=== PATIENT | female | born 1965 | race Caucasian/White ===

== ENCOUNTER 2018-06-26 20:27 | Emergency (ER) | payer BC, OTHER ==
[~2018-06-26] VITALS: Ht 175.3 cm; Wt 102.1 kg
[2018-06-26] MEDS ORDERED: KEPPRA500 MG PO (21:13)
[2018-06-26] MEDS ORDERED: DILANTIN100 MG PO ×2 (21:13→21:14)
[2018-06-26] MEDS ORDERED: NAPROSYN500 MG PO (21:14)
[2018-06-26] MEDS ORDERED: TOPAMAX100 MG PO (21:14)
[2018-06-26] MEDS ORDERED: VERAPAMIL HCL40 MG PO (21:14)
[2018-06-26] MEDS ORDERED: PROZAC20 MG PO (21:15)
[2018-06-26] MEDS ORDERED: NORCO 5-325 TA1 EACH PO (22:02)
== END 2018-06-26 22:26 | disposition home or self-care (01) ==
LOC: ED 20:27
PROC: 2W3CX1Z Immobilization of Right Lower Arm using Splint (ICD-10-PCS; principal; 2018-06-26)
DX: S62.111A Displaced fracture of triquetrum [cuneiform] bone, right wrist, initial encounter for closed fracture (principal); G43.909 Migraine, unspecified, not intractable, without status migrainosus; F41.9 Anxiety disorder, unspecified; F32.9 Major depressive disorder, single episode, unspecified; Z87.891 Personal history of nicotine dependence; Z90.710 Acquired absence of both cervix and uterus; Z88.8 Allergy status to other drugs, medicaments and biological substances; Z79.899 Other long term (current) drug therapy; W18.31XA Fall on same level due to stepping on an object, initial encounter
CPT/HCPCS: 29125; 73090; 73110; 99283-25

== ENCOUNTER 2018-10-05 10:28 | Emergency (ER) | payer MEDICARE ==
[~2018-10-05] VITALS: Ht 175.3 cm; Wt 102.1 kg
[~2018-10-05 10:28] MED LIST: DILANTIN100 MG PO; KEPPRA500 MG PO; NAPROSYN500 MG PO; NORCO 5-325 TA1 EACH PO; PROZAC20 MG PO; TOPAMAX100 MG PO; VERAPAMIL HCL40 MG PO
--- NOTE | 2018-10-06 06:45 | EKG ---
[facility] [address] [facility] [place] [address] Signed Normal sinus rhythm Normal ECG No previous ECGs available Confirmed by LEEANNE DANGELO MD ([id number]) on 10/06/2018 6:45:51 AM Electronically Signed By: LEEANNE DANGELO MD 10/06/18 0645 PATIENT NAME: TRANG DIAZ Electrocardiogram DATE OF : 63 PHYSICIAN: LEEANNE DANGELO MD REPORT #: [id number] REPORT IS CONFIDENTIAL AND NOT TO BE RELEASED WITHOUT AUTHORIZATION
== END 2018-10-05 14:37 | disposition home or self-care (01) ==
LOC: ED 10:28
DX: G40.909 Epilepsy, unspecified, not intractable, without status epilepticus (principal); R20.2 Paresthesia of skin; F41.9 Anxiety disorder, unspecified; F32.9 Major depressive disorder, single episode, unspecified; Z87.891 Personal history of nicotine dependence; Z88.8 Allergy status to other drugs, medicaments and biological substances; Z79.899 Other long term (current) drug therapy
CPT/HCPCS: 51701; 70450; 71045; 80053; 80156; 80185; 81001; 82542; 84484; 85025; 93005; 93010; 93880; 99284-25; G0480; J2270; J7030

== ENCOUNTER 2018-10-27 14:04 | Emergency (ER) | payer MEDICARE ==
[~2018-10-27] VITALS: Ht 175.3 cm; Wt 102.1 kg
--- OUTSIDE RECORDS SUMMARY | ~2018-10-27 | XMS | Encounter Summary ---
Demographics + + + | Address | [address] | | | [place] [address] | + + + | Home Phone | | + + + | Preferred Language | Unknown | + + + | Marital Status | | + + + | Methodist Affiliation | Unknown | + + + | Race | Unknown | + + + | Ethnic Group | Unknown | + + + Author + + + | Author | [facility] [email or web address] [facility] | + + + | Organization | [facility] [email or web address] [facility] | + + + | Address | Unknown | + + + | Phone | Unavailable | + + + Care Team Providers + +------+ + | Care Civil Litigation Attorney Name | Role | Phone | + +------+ + | Nicolasa Leavitt PA-C | PCP | | + +------+ + Encounter Details +--------+ + + + + | Date | Type | Department | Care Team | Description | +--------+ + + + + | 10/10/ | Documentati | [facility] | Jennifer Mcnair, | | | 2019 | on Only | [facility] | [address] | | | | | [address] | [address] [place] | | | | | [place], [place] | [address] | | | | | [address] | | | | | | [phone] | | | +--------+ + + + + Social History + +-------+ +--------+------+ | Tobacco Use | Types | Packs/Day | Years | Date | | | | | Used | | + +-------+ +--------+------+ | Never Assessed | | | | | + +-------+ +--------+------+ + + + | Sex Assigned at | Date Recorded | | | | + + + | Not on file | | + + + as of this encounter Progress Notes Emely Nae N - 10/10/2018 10:09 AM PDTNeurology referralin this encounter Plan of Treatment +--------+---------+ + + + | Date | Type | Specialty | Care Team | Description | +--------+---------+ + + + | 01/19/ | Office | Neurology | Jennifer Mcnair, | | | 2018 | Visit | | MD [address] | | | | | | [place] | | | | | | [id number] | | | | | | | | +--------+---------+ + + + as of this encounter Visit Diagnoses Not on filein this encounter"
--- OUTSIDE RECORDS SUMMARY | ~2018-10-27 | XMS | Encounter Summary ---
Demographics + + + | Address | [address] | | | [place] [address] | + + + | Home Phone | | + + + | Preferred Language | Unknown | + + + | Marital Status | | + + + | Jehovah'S Witness Affiliation | Unknown | + + + | Race | Unknown | + + + | Ethnic Group | Unknown | + + + Author + + + | Author | [facility] [employer] [facility] | + + + | Organization | [facility] [employer] [facility] | + + + | Address | Unknown | + + + | Phone | Unavailable | + + + Care Team Providers + +------+ + | Care Package Line Operator Name | Role | Phone | [...] | [address] | [address] [place] [place] | | | | | [place], [place] | [address] | | | | | [address] | | | | | | [phone] | | | +--------+ + + + [...] [place] | | | | | | [phone] | | | | | | | | +--------+---------+ + + + as of this encounter Visit Diagnoses Not on filein this encounter"
--- OUTSIDE RECORDS SUMMARY | ~2018-10-27 | XMS | Clinical Summary ---
Demographics + + + | Address | [address] | | | [place] [address] | + + + | Home Phone | | + + + | Preferred Language | Unknown | + + + | Marital Status | | + + + | Yazdanism Affiliation | Unknown | + + + | Race | Unknown | + + + | Ethnic Group | Unknown | + + + Author + + + | Author | [facility] | + + + | Organization | [facility] [employer] [facility] | + + + | Address | Unknown | + + + | Phone | Unavailable | + + + Care Team Providers + +------+ + | Care Dynamic Etching Processor Name | Role | Phone | + +------+ + | Nicolasa Leavitt PA-C | PP | | + +------+ + Allergies Not on File Current Medications Not on file Active Problems Not on file Encounters +--------+ + + + + | Date | Type | Specialty | Care Team | Description | +--------+ + + + + | 10/10/ | Documentati | | Jennifer Mcnair, | | | 2018 | on Only | | MD | | +--------+ + + + + from Last 3 Months Social History + +-------+ +--------+------+ | Tobacco [...] | + + + Plan of Treatment +--------+---------+ + + + | Date | Type | Specialty | Care Team | Description | +--------+---------+ + + + | 01/19/ | Office | | Jennifer Mcnair, | | | 2018 | Visit | | MD [address] | | | | | | [place] | | | | | | [phone] | | | | | | | [...] | Screening | 4 | | | | (Mammogram) | | | | + + + + + | Colon Cancer | | | | | Screening | 4 | | | | (Colonoscopy) | | | | + + + + + | Vaccine: Zoster (1 | | | | | of 2) | 4 | | | + + + + + | Vaccine: Influenza | | | | | (Season Ended) | 9 | | | + + [...] +------+-------+ + | MEDICARE | MEDICA | [id number] | | | [address] | | | RE | | | | [place] [id number] | | | IP-OP | | | [...] Self | [birth year] Home: | [address] | | | al/Fam | | 1965 | [phone] [place] | | | [place] | | | [phone] | [phone] | + +--------+ +--------+ + +"
--- OUTSIDE RECORDS SUMMARY | ~2018-10-27 | XMS | Clinical Summary ---
Demographics + + + | Address | [address] | | | [place] [address] | + + + | Home Phone | | + + + | Preferred Language | Unknown | + + + | Marital Status | | + + + | Episcopal Affiliation | Unknown | + + + | Race | Unknown | + + + | Ethnic Group | Unknown | + + + Author + + + | Author | [facility] | + + + | Organization | [facility] [employer] [facility] | + + + | Address | Unknown | + + + | Phone | Unavailable | + + + Care Team Providers + +------+ + | Care Speech Therapy Director Name | Role | Phone | + [...] [place] | | | | | | [phone] | | | | | | | [...] +------+-------+ + | MEDICARE | MEDICA | [id number] | | | [address] | | | RE | | | | [place] [phone] | | | IP-OP | | | [...] | | | [place] | | | [phone] | [phone] | + +--------+ +--------+ + +"
--- OUTSIDE RECORDS SUMMARY | 2018-10-27 14:06 | XMS ---
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 Events No recent Security Events currently on file CRITERIA MET - [facility] - 2 Visits in 30 Days CARE PROVIDERS MELI JOHNSON Family Medicine Current PHONE: Unknown Alize TORRES Nurse Practitioner: Family Current PHONE: Unknown ROSAURA RAMOS Family [facility] Current PHONE: [phone] Laura Mojica Mental Health Provider 11/27/2017-05/26/2018 PHONE: Unknown ROSAURA RAMOS Primary Care Current PHONE: Unknown BLESSING Brooks Primary Care Current PHONE: Unknown BO DOLL Primary Care Current PHONE: Unknown MELI JOHNSON Primary Care Current PHONE: Unknown Meli Johnson Primary Care Current PHONE: Unknown MELI JOHNSON Primary Care Current PHONE: Unknown RONNIE TINEO Primary Care 07/22/2017-[facility] PHONE: [phone] LYNDON PATTERSON Primary Care [facility] PHONE: Unknown LYNDON PARK Primary [facility] PHONE: Unknown Vinh has no Care Guidelines for this patient. E.Tl VISIT COUNT (12 MO.) 1 [place] [address] [place] [address] KISHORE Torres TOTAL 5 NOTE: Visits indicate total known visits. ED/UCC VISIT TRACKING (12 MO.) 10/27/2018 14:05 KISHORE Quintana [place] TYPE: Emergency COMPLAINT: - MILD SOB 10/05/2018 10:29 KISHORE Quintana [place] TYPE: Emergency COMPLAINT: - SEIZURE,DIZZINESS, RIGHT SIDED WEAKNESS DIAGNOSES: - Major depressive disorder, single episode, unspecified - Personal history of nicotine dependence - Epilepsy, unspecified, not intractable, without status epilepticus - Other shelter (current) drug therapy - Anxiety disorder, unspecified - Allergy status to other drugs, medicaments and biological substances status - Paresthesia of skin 06/26/2018 20:28 KISHORE Quintana [place] TYPE: Emergency COMPLAINT: - R WRIST/HAND PAIN,INJURY DIAGNOSES: - Pain in right hand - Anxiety disorder, unspecified - Major depressive disorder, single episode, unspecified - Displaced fracture of triquetrum [cuneiform] bone, right wrist, initial encounter for closed fracture - Acquired absence of both cervix and uterus - Fall on same level due to stepping on an object, initial encounter - Migraine, unspecified, not intractable, without status migrainosus - Allergy status to other drugs, medicaments and biological substances status - Personal history of nicotine dependence - 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
[2018-10-27] MEDS ORDERED: ALLEGRA ALLERG180 MG PO (14:20)
--- NOTE | 2018-10-28 13:39 | EKG ---
[facility] [address] [facility] [place] [address] Signed Normal sinus rhythm Normal ECG When compared with ECG of 05-OCT-2018 10:57, No significant change was found Confirmed by QUINTON SCANLON MD ([id number]) on 10/28/2018 1:39:20 PM Electronically Signed By: QUINTON SCANLON MD 10/28/18 1339 PATIENT NAME: EMILYTRANG R Electrocardiogram DATE OF : 63 PHYSICIAN: QUINTON SCANLON MD REPORT #: [id number] REPORT IS CONFIDENTIAL AND NOT TO BE RELEASED WITHOUT AUTHORIZATION
== END 2018-10-27 15:47 | disposition home or self-care (01) ==
LOC: ED 14:04
DX: J30.2 Other seasonal allergic rhinitis (principal); F41.9 Anxiety disorder, unspecified; F32.9 Major depressive disorder, single episode, unspecified; Z87.891 Personal history of nicotine dependence; Z90.710 Acquired absence of both cervix and uterus; Z88.8 Allergy status to other drugs, medicaments and biological substances; Z79.899 Other long term (current) drug therapy
CPT/HCPCS: 36415; 71045; 80053; 84484; 85025; 93005; 93010; 99284-25

== ENCOUNTER 2019-03-02 17:29 | Emergency (ER) | payer MEDICARE ==
[~2019-03-02] VITALS: Ht 175.3 cm; Wt 104.3 kg
[~2019-03-02 17:29] MED LIST changes: +ALLEGRA ALLERG180 MG PO; +PHENYTEK300 MG PO; -PROZAC20 MG PO; +PROZAC40 MG PO; +ZYRTEC10 MG PO
--- OUTSIDE RECORDS SUMMARY | 2019-03-02 17:32 | XMS ---
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 - 2 Visits in 30 Days CARE PROVIDERS MELI JOHNSON Family Medicine Current PHONE: Unknown ROSAURA RAMOS [facility] Current PHONE: [phone] REJI CALDERÓN 10/28/2018-Current PHONE: [phone] Laura Mojica Mental Health Provider 11/27/2017-05/26/2018 PHONE: Unknown ROSAURA RAMOS Primary Care Current PHONE: [phone] Meli Johnson Primary Care Current PHONE: Unknown HIEU BANUELOS Primary Care Current PHONE: Unknown BO DOLL Primary Care Current PHONE: Unknown MELI JOHNSON Primary Care Current PHONE: Unknown RONNIE TINEO Primary Care 07/22/2017-[facility] [place] PHONE: [phone] LYNDON PARK Primary [facility] PHONE: Unknown Vinh has no Care Guidelines for this patient. [place] VISIT COUNT (12 MO.) 5 KISHORE Torres TOTAL 5 NOTE: Visits indicate total known visits. 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 10/27/2018 14:05 KISHORE [place] TYPE: Emergency COMPLAINT: - MILD SOB DIAGNOSES: - Acquired absence of both cervix and uterus - Anxiety disorder, unspecified - Allergy status to other drugs, medicaments and biological substances status - Personal history of nicotine dependence - Other seasonal allergic rhinitis - Major depressive disorder, single episode, unspecified - 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 - Cough 10/05/2018 10:29 KISHORE [place]ana [place] TYPE: Emergency COMPLAINT: - SEIZURE,DIZZINESS, RIGHT SIDED WEAKNESS DIAGNOSES: - Major depressive disorder, single episode, unspecified - Personal history of nicotine dependence - Epilepsy, unspecified, not intractable, without status epilepticus - Gómez's palsy - 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
[2019-03-02] MEDS ORDERED: MAXALT MLT5 MG PO (18:52)
== END 2019-03-02 21:30 | disposition home or self-care (01) ==
LOC: ED 17:29
DX: M54.32 Sciatica, left side (principal); F41.9 Anxiety disorder, unspecified; F32.9 Major depressive disorder, single episode, unspecified; Z79.899 Other long term (current) drug therapy; Z87.891 Personal history of nicotine dependence; Z88.3 Allergy status to other anti-infective agents
CPT/HCPCS: 99283

== ENCOUNTER 2019-05-11 06:41 | Emergency (ER) | payer MEDICARE ==
[~2019-05-11] VITALS: Ht 175.3 cm; Wt 99.8 kg
--- OUTSIDE RECORDS SUMMARY | ~2019-05-11 | XMS | Clinical Summary ---
Demographics + + + | Address | [address] | | | [place] [address] | + + + | Home Phone | | + + + | Preferred Language | Unknown | + + + | Marital Status | | + + + | Synagogue Affiliation | 1037 | + + + | Race | Unknown | + + + | Ethnic Group | Unknown | + + + Author + + + | Author | [facility] | | | and [place] | + + + | Organization | [facility] | | | and [place] | + + + | Address | Unknown | + + + | Phone | Unavailable | + + + Support + + + + + | Name | Relationship | Address | Phone | + + + + + | Jenn Land | ECON | [address] | | | | | [place], [place] | | | | | [address] | | + + + + + Care Team Providers + +------+ + | Care Finished Goods Planner Name | Role | Phone | + +------+ + | Nicolasa Leavitt | PCP | | + +------+ + Allergies + + + + + + | Active Allergy | Reactions | Severity | Noted | Comments | | | | | Date | | + + + + + + | Bee Pollen | Anaphylaxis | High | 09/12/19 | | | | | | 16 | | + + + + + + | Bupropion | Other (See Comments) | High | 05/10/20 | Seizures | | | | | 17 | | + + + + + + | Metronidazole | Anaphylaxis, | High | 09/12/19 | Stops breathing | | | Shortness Of Breath, | | 16 | | | | Swelling, Other | | | | | | (See Comments) | | | | + + + + + + | Propoxyphene | Nausea And Vomiting, | High | 09/12/19 | | | | Nausea Only | | 16 | | + + + + + + | Propoxyphene | Nausea And Vomiting, | Low | 03/14/20 | "makes me feel | | N-Acetaminophen | Other (See | | 17 | weird" | | | Comments) | | | | + + + + + + | Venlafaxine | Unknown | Low | 05/10/20 | | | | | | 17 | | + + + + + + Medications + + + +---------+------+------+-------+ | Medication | Sig | Dispensed | Refills | Star | End | Statu | | | | | | t | Date | s | | | | | | Date | | | + + + +---------+------+------+-------+ | verapamil (CALAN) | Take 40 mg by mouth | | 0 | | | Activ | | 40 MG tablet | Daily. | | | | | e | + + + +---------+------+------+-------+ | phenytoin | Take 100 mg by mouth | | 0 | | | Activ | | (DILANTIN) 100 mg ER | nightly. | | | | | e | | capsule | | | | | | | + + + +---------+------+------+-------+ | phenytoin | Take 300 mg by mouth | | 0 | | | Activ | | (DILANTIN) 300 MG ER | nightly. | | | | | e | | capsule | | | | | | | + + + +---------+------+------+-------+ | topiramate | Take 100 mg by mouth | | 0 | | | Activ | | (TOPAMAX) 100 mg | 2 times daily. | | | | | e | | tablet | | | | | | | + + + +---------+------+------+-------+ | levETIRAcetam | Take 500 mg by mouth | | 0 | | | Activ | | (KEPPRA) 500 mg | 2 times daily. | | | | | e | | tablet | | | | | | | + + + +---------+------+------+-------+ | raNITIdine HCl | Take by mouth 2 | | 0 | | | Activ | | (ZANTAC PO) | times daily. | | | | | e | + + + +---------+------+------+-------+ | FLUoxetine | Take 40 mg by mouth | | 0 | | | Activ | | (PROZAC) 40 MG | Daily. | | | | | e | | capsule | | | | | | | + + + +---------+------+------+-------+ | omeprazole | Take 10 mg by mouth | | 0 | | | Activ | | (PRILOSEC) 10 mg | every morning | | | | | e | | capsule | (before breakfast). | | | | | | + + + +---------+------+------+-------+ | cetirizine | Take 10 mg by mouth | | 0 | | | Activ | | (ZYRTEC) 10 mg | Daily. | | | | | e | | tablet | | | | | | | + + + +---------+------+------+-------+ | Fexofenadine HCl | Take by mouth | | 0 | | | Activ | | (PAPO PO) | Daily. | | | | | e | + + + +---------+------+------+-------+ | fluticasone | 1 spray by Nasal | | 0 | | | Activ | | (FLONASE) 50 | route Daily. | | | | | e | | mcg/nasal spray | | | | | | | + + + +---------+------+------+-------+ | rizatriptan | Take 5 mg by mouth | | 0 | | 11/0 | Disco | | (MAXALT) 5 MG tablet | as needed for | | | | 8/20 | ntinu | | | Migraine. May repeat | | | | 19 | ed | | | in 2 hours if | | | | | (Ther | | | needed | | | | | apy | | | | | | | | compl | | | | | | | | eted) | + + + +---------+------+------+-------+ Active Problems + + + | Problem | Noted Date | + + + | GERD (gastroesophageal reflux disease) | 05/01/2019 | + + + | Lumbar herniated disc | 05/01/2019 | + + + | Class 2 obesity due to excess calories with body mass index (BMI) | 05/01/2019 | | of 36.0 to 36.9 in adult | | + + + | Insomnia due to medical condition | 03/28/2018 | + + + | Encounter for medication review and counseling | 02/21/2018 | + + + + + | Overview: > 2 chronic conditions> 9 medicationsMultiple | | providersBasic health literacy levelMedication review every 12 | | monthsLast Assessment & Plan: Medications reviewed with patient | | and med list updated.Adherence: No concernsSide effects noted : | | None notedDrug interactions: None concerningReviewed purpose and | | appropriate use of all medicationsDeprescribing opportunities: | | PPI but patient not quite ready Explained the reason for dose | | decrease in verapamil.Unlikely to be responsible for described | | side effects. | |Adherence: No concerns | |Side effects noted : None noted | |Drug interactions: None concerning | | | |Reviewed purpose and appropriate use of all medications | |Deprescribing opportunities: PPI but patient not quite ready | |Explained the reason for dose decrease in verapamil.Unlikely to be responsible for describe d side effects. | + + + + + | Generalized anxiety disorder | 02/14/2018 | + + + | Sprain of left thumb, sequela | 02/14/2018 | + + + | Left hand pain | 02/10/2018 | + + + + + | Overview: Last Assessment & Plan: Given mechanism of injury | | suspect sprain.Attempted to give full wrist and thumb spica | | brace. We do not have the correct type in clinic. Gave a thumb | | wrist gutter brace and will have her terutn to clinic when our | | shipment of thumb spica's come inXray of hand was | | negative.REcommended supportive care, ice and bracing and follow | | up next week when swelling improving to determine if ligamentous | | injury or sending to hand specialist is indicated. | + + + + + | Hx of migraine headaches | 12/12/2017 | + + + | Health education/counseling | 11/07/2017 | + + + + + | Overview: 10/31/2017 Assessment. 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 | + + + + + | Family history of Alzheimer's disease | 11/06/2017 | + + + | High plasma total homocysteine | 11/06/2017 | + + + | History of chronic bronchitis | 11/06/2017 | + + + | Memory change | 11/06/2017 | + + + | Chronic seasonal allergic rhinitis | 10/08/2017 | + + + | Migraine without status migrainosus, not intractable | 10/08/2017 | + + + | Non-intractable vomiting with nausea | 05/10/2017 | + + + | Chronic bilateral low back pain without sciatica | 02/04/2017 | + + + | Chronic constipation | 02/04/2017 | + + + | Depression | 02/04/2017 | + + + | Hot flash, menopausal | 02/04/2017 | + + + | Seizures | 07/06/2016 | + + + + + | Overview: Seeing Dr. Rodriguez at [facility] On | | Keppra, Dilantin, and Topiramate.02/14/18: Seizure | | Disorder:Previously followed by Dr. Nam, neurologist at [facility] | | [facility] and on levetiracetam at 500 mg twice daily; impaired | | nighttime sleep with stress and anxiety, and may have experienced | | breakthrough seizuresBrain MRI without hippocampal atrophy or | | mesial temporal sclerosisTherapeutic serum levetiracetam level | | but Keppra dose will be increased to 500 mg in the morning and | | 1000 mg at bedtime given possible breakthrough seizures | + + Encounters +--------+ + + + + | Date | Type | Specialty | Care Team | Description | +--------+ + + + + | 05/01/ | Office | Neurosurgery | Michael Zamora | Lumbar herniated | | 2019 | Visit | | MD Promise | disc (Primary Dx); | | | | | | Class 2 obesity due | | | | | | to excess calories | | | | | | with body mass index | | | | | | (BMI) of 36.0 to | | | | | | 36.9 in adult, | | | | | | unspecified whether | | | | | | serious comorbidity | | | | | | present | +--------+ + + + + | 04/30/ | Abstract | Neurosurgery | Kvng, | | | 2018 | | | MD Jennifer | | +--------+ + + + + | 04/30/ | Documentati | Neurosurgery | Michael Zamora | Pain Management | | 2019 | on | | MD Promise | (Initial Encounter) | +--------+ + + + + | 04/01/ | Imaging | Radiology | Provider, | | | 2018 | Exam | | MD Jennifer | | +--------+ + + + + | 04/01/ | Imaging | Radiology | Provider, | | | 2018 | Exam | | MD Jennifer | | +--------+ + + + + | 03/31/ | Telephone | Neurology | Jennifer Mcnair, | Follow-up | | 2018 | | | MD | | +--------+ + + + + | 03/23/ | Office | Neurology | Jennifer Mcnair, | Nonspecific | | 2018 | Visit | | | trini adams | | | | | | (Primary Dx); Robbi | | | | | | of tremashlie; | | | | | | Driving safety issue | +--------+ + + + + | 03/18/ | Telephone | Neurology | Jennifer Mcnair, | Other (Concerns) | | 2018 | | | MD | | +--------+ + + + + | 03/18/ | Telephone | Neurology | Jennifer Mcnair, | Paperwork (January | 2018 | | | MD | Chart Notes) | +--------+ + + + + | 02/18/ | Office | Neurology | Jennifer Mcnair, | Spells of sheri | 2018 | Visit | | | (Primary Dx); | | | | | | Driving safety issue | +--------+ + + + + | 02/18/ | Telephone | Neurology | Jaydon Maxwell, | Other (records | 2018 | | | Twila Johnson | request ) | | | | | [place] | | +--------+ + + + + from Last 3 Months Family History + + +------+ + | Medical History | Relation | Name | Comments | + + +------+ + | Colon cancer | Brother | | | + + +------+ + | Diabetes | Brother | | | + + +------+ + | Esophageal cancer | Brother | | | + + +------+ + | Heart disease | Brother | | | + + +------+ + | Hypertension | Brother | | | + + +------+ + | Stomach cancer | Brother | | | + + +------+ + | Alcohol abuse | Brother | | | + + +------+ + | Depression | Brother | | | + + +------+ + | Drug abuse | Brother | | | + + +------+ + | Liver disease | Brother | | | + + +------+ + | Alcohol abuse | Brother | | | + + +------+ + | Depression | Brother | | | + + +------+ + | Drug abuse | Brother | | | + + +------+ + | Osteoporosis | Brother | | | + + +------+ + | No known problems | Brother | | | + + +------+ + | Diabetes | Brother | | | + + +------+ + | Alcohol abuse | Daughter | | | + + +------+ + | Drug abuse | Daughter | | | + + +------+ + | Migraines | Daughter | | | + + +------+ + | Mental illness | Daughter | | | + + +------+ + | Migraines | Daughter | | | + + +------+ + | Thyroid disease | Daughter | | | + + +------+ + | Migraines | Daughter | | | + + +------+ + | Migraines | Daughter | | | + + +------+ + | Depression | Father | | | + + +------+ + | Diabetes | Father | | | + + +------+ + | Emphysema | Father | | | + + +------+ + | GERD | Father | | | + + +------+ + | Heart attack | Father | | Multiple | + + +------+ + | Heart disease | Father | | | + + +------+ + | High cholesterol | Father | | | + + +------+ + | Hypertension | Father | | | + + +------+ + | Mental illness | Father | | | + + +------+ + | Migraines | Father | | | + + +------+ + | Neuropathy | Father | | | + + +------+ + | Obesity | Father | | | + + +------+ + | Rheum arthritis | Father | | | + + +------+ + | No known problems | Maternal | | | | | Grandfath | | | | | er | | | + + +------+ + | No known problems | Maternal | | | | | Grandmoth | | | | | er | | | + + +------+ + | Alzheimer's disease | Mother | | | + + +------+ + | COPD | Mother | | | + + +------+ + | Dementia | Mother | | | + + +------+ + | Depression | Mother | | | + + +------+ + | Heart attack | Mother | | x2 | + + +------+ + | Heart disease | Mother | | | + + +------+ + | Hypertension | Mother | | | + + +------+ + | Migraines | Mother | | | + + +------+ + | Neuropathy | Mother | | | + + +------+ + | Rheum arthritis | Mother | | | + + +------+ + | Stroke | Mother | | x2 | + + +------+ + | No known problems | Paternal | | | | | Grandfath | | | | | er | | | + + +------+ + | No known problems | Paternal | | | | | Grandmoth | | | | | er | | | + + +------+ + | No known problems | Son | | | + + +------+ + | No known problems | Son | | | + + +------+ + | Aneurysm | Neg Hx | | | + + +------+ + | Ataxia | Neg Hx | | | + + +------+ + | Chorea | Neg Hx | | | + + +------+ + | Essential tremors | Neg Hx | | | + + +------+ + | Familial tremors | Neg Hx | | | + + +------+ + | Mental retardation | Neg Hx | | | + + +------+ + | Multiple sclerosis | Neg Hx | | | + + +------+ + | Neurofibromatosis | Neg Hx | | | + + +------+ + | Parkinsonism | Neg Hx | | | + + +------+ + | Seizures | Neg Hx | | | + + +------+ + + +------+ + + | Relation | Name | Status | Comments | + +------+ + + | Brother | | Alive | | + +------+ + + | Brother | | Alive | | + +------+ + + | Brother | | Alive | | + +------+ + + | Brother | | Alive | | + +------+ + + | Brother | | Alive | | + +------+ + + | Daughter | | Alive | | + +------+ + + | Daughter | | Alive | | + +------+ + + | Daughter | | Alive | | + +------+ + + | Daughter | | Alive | | + +------+ + + | Father | | | | + +------+ + + | Maternal Grandfather | | | | + +------+ + + | Maternal Grandmother | | | | + +------+ + + | Mother | | Alive | | + +------+ + + | Paternal Grandfather | | | | + +------+ + + | Paternal Grandmother | | | | + +------+ + + | Son | | Alive | | + +------+ + + | Son | | Alive | | + +------+ + + Social History + + + +--------+ + | Tobacco Use | Types | Packs/Day | Years | Date | | | | | Used | | + + + +--------+ + | Former Smoker | Cigarettes | 2.5 | 40 | 197710/09/2017 | + + + +--------+ + + +---+---+---+ | Smokeless Tobacco: | | | | | Never Used | | | | + +---+---+---+ + + +---------+ + | Alcohol Use | Drinks/Week | oz/Week | Comments | + + +---------+ + | Yes | | | | + + +---------+ + + + + | Sex Assigned at | Date Recorded | | | | + + + | Not on file | | + + + + + + + | Job Start Date | Occupation | Industry | + + + + | Not on file | Not on file | Not on file | + + + + + + + + | Travel History | Travel Start | Travel End | + + + + + + | No recent travel history available. | + + Last Filed Vital Signs + + + + + | Vital Sign | Reading | Time Taken | Comments | + + + + + | Blood Pressure | 136/64 | 05/01/2019 10:01 AM | | | | | PST | | + + + + + | Pulse | 75 | 05/01/2019 10:01 AM | | | | | PST | | + + + + + | Temperature | - | - | | + + + + + | Respiratory Rate | - | - | | + + + + + | Oxygen Saturation | 97% | 05/01/2019 10:01 AM | | | | | PST | | + + + + + | Inhaled Oxygen | - | - | | | Concentration | | | | + + + + + | Weight | 112.2 kg (247 lb 5.7 | 05/01/2019 10:01 AM | | | | oz) | PST | | + + + + + | Height | 175.3 cm (5' 9") | 05/01/2019 10:01 AM | | | | | PST | | + + + + + | Body Mass Index | 36.53 | 05/01/2019 10:01 AM | | | | | PST | | + + + + + Plan of Treatment +--------+---------+ + + + | Date | Type | Specialty | Care Team | Description | +--------+---------+ + + + | 05/14/ | Office | Neurology | Jennifer Mcnair, | | | 2019 | Visit | | MD Al HERNANDEZ | | | | | | [address] | | | | | | [place] [address] | | | | | | [phone] | | | | | | | | +--------+---------+ + + + | 06/03/ | Office | Neurology | Jennifer Mcnair, | | | 2019 | Visit | | MD Al HERNANDEZ | | | | | | [address] | | | | | | [place] [address] | | | | | | [phone] | | | | | | | | +--------+---------+ + + + + + + + + | Health Maintenance | Due Date | Last Done | Comments | + + + + + | Hepatitis C | | | | | Screening | 4 | | | + + + + + | Cervical Cancer | | | | | Screening (Pap) | 4 | | | + + + + + | Vaccine: Zoster (1 | | | | | of 2) | 4 | | | + + + + + | Adult Annual | | | | | Wellness Visit | 9 | | | + + + + + | Statin Therapy | | | | | (optimal intensity) | 9 | | | + + + + + | Breast Cancer | | | | | Screening | 9 | | | + + + + + | Lung Cancer | | | | | Screening | 9 | | | + + + + + | Vaccine: | | 09/13/2016 | | | Dtap/Tdap/Td (2 - | 7 | | | | Td) | | | | + + + + + | Colorectal Cancer | | 12/23/2017 | | | Screening | 8 | | | | (Colonoscopy) | | | | + + + + + | Vaccine: Influenza | Completed | 03/18/2019, 04/04/2018, | | | | | 05/11/2017, Additional history | | | | | exists | | + + + + + Procedures + +--------+ + + + | Procedure Name | Priori | Date/Time | Associated Diagnosis | Comments | | | ty | | | | + +--------+ + + + | MRI LUMBAR SPINE WO | Routin | 03/25/2019 | | Results for this | | CONTRAST | e | 12:00 AM | | procedure are in the | | | | PDT | | results section. | + +--------+ + + + | XR LUMBAR SPINE 4 + | Routin | 03/19/2019 | | Results for this | | VW | e | 12:00 AM | | procedure are in the | | | | PDT | | results section. | + +--------+ + + + from Last 3 Months Results MRI Lumbar Spine wo Contrast (03/25/2019 12:00 AM PDT) + + | Specimen | + + | | + + + + + | Narrative | Performed At | + + + | External films for comparison only | [facility] | | | | | No results will be in the chart. | | + + + + +---------+ + + | Performing | Address | City/State/Zipcode | Phone Number | | Organization | | | | + +---------+ + + | [facility] | | | | + +---------+ + + XR Lumbar Spine 4 + Vw (03/19/2019 12:00 AM PDT) + + | Specimen | + + | | + + + + + | Narrative | Performed At | + + + | External films for comparison only | [facility] | | | | | No results will be in the chart. | | + + + + +---------+ + + | Performing | Address | City/State/Zipcode | Phone Number | | Organization | | | | + +---------+ + + | [facility] | | | | + +---------+ + + from Last 3 Months Insurance + +--------+ +--------+ +---------+--------+ | Payer | Benefi | Subscriber | Effect | Phone | Address | Type | | | t Plan | ID | kenisha | | | | | | / | | Dates | | | | | | Group | | | | | | + +--------+ +--------+ +---------+--------+ | MEDICARE | MEDICA | [id number] | | [phone] | | Medica | | | RE | | 018-Pr | 5 | | re | | | PART A | | esent | | | | | | AND B | | | | | | + +--------+ +--------+ +---------+--------+ | MEDICARE | MEDICA | [id number] | | [phone] | | Medica | | | RE | | 018-Pr | 5 | | re | | | PART A | | esent | | | | | | AND B | | | | | | + +--------+ +--------+ +---------+--------+ + +--------+ +--------+ + + | Guarantor Name | Accoun | Relation to | Date | Phone | Billing Address | | | t Type | Patient | of | | | | | | | | | | + +--------+ +--------+ + + | Cecilia Kelley | Person | Self [birth year] | [address] | | | al/Fam | | 1965 | [phone] | [place], [place] | | | susie | | | 5 (Home) | [phone] | + +--------+ +--------+ + + | Cecilia Kelley | Person | Self [birth year] | [address] | | | al/Fam | | 1965 | [phone] | [place], [place] | | | susie | | | 5 (Home) | [phone] | + +--------+ +--------+ + + Advance Directives + + + + + | Type | Date Recorded | Patient | Explanation | | | | Form Coverer | | + + + + + | Power of | | | | | Sales Contract Administrator | | | | + + + + + | Advance | | | | | Directive | | | | + + + + +
--- OUTSIDE RECORDS SUMMARY | ~2019-05-11 | XMS | Clinical Summary ---
Demographics + + + | Address | [address] | | | [place] [address] | + + + | Home Phone | | + + + | Preferred Language | Unknown | + + + | Marital Status | | + + + | Protestant Affiliation | Unknown | + + + | Race | Unknown | + + + | Ethnic Group | Unknown | + + + Author + + + | Author | [facility] (Historical as of | | | 02-07-19) | + + + | Organization | [facility] (Historical as of | | | 02-07-19) | + + + | Address | Unknown | + + + | Phone | Unavailable | + + + Care Team Providers + +------+ + | Care Service Advocate Contact Name | Role | Phone | + +------+ + | Nicolasa Leavitt PA-C | PP | | + +------+ + Allergies Not on File Current Medications Not on file Active Problems Not on file Social History + +-------+ +--------+------+ | Tobacco [...] on file | | + + + Plan of Treatment + + + + + | Health Maintenance | Due Date | Last Done | Comments | + + + + + | Vaccine: | | | | | Dtap/Tdap/Td (1 - | 3 | | | | Tdap) | | | | + + + + + | Cervical Cancer | | | | | Screening (Pap) | 4 | | | + + + + + | Vaccine: Zoster (1 | | | | | of 2) | 4 | | | + + + + + | Vaccine: Influenza | | | | | (#1) | 9 | | | + + + + + Results Not on filefrom Last 3 Months Insurance + +--------+ +------+-------+ + | Payer | Benefi | Subscriber | Type | Phone | Address | | | t Plan | ID | | | | | | / | | | | | | | Group | | | | | + +--------+ +------+-------+ + | MEDICARE | MEDICA | [id number] | | | [address] | | | RE | | | | [place] [phone] | | | IP-OP | | | | | + +--------+ +------+-------+ + + +--------+ +--------+ + + | Guarantor Name | Accoun | Relation to | Date | Phone | Billing Address | | | t Type | Patient | of | | | | | | | | | | + +--------+ +--------+ + + | TRANG DIAZ | Person | Self [birth year] | Home: | [address] | | | al/[place]opi | | 1965 | [phone] [place] | | | [place] | | | [phone] | + +--------+ +--------+ + +"
--- OUTSIDE RECORDS SUMMARY | ~2019-05-11 | XMS | Encounter Summary ---
Demographics + + + | Address | [address] | | | [place] [address] | + + + | Home Phone | | + + + | Preferred Language | Unknown | + + + | Marital Status | | + + + | Restorationist Affiliation | 1037 | + + + | Race | Unknown | + + + | Ethnic Group | Unknown | + + + Author + + + | Author | [facility] | | | and [place] | + + + | Organization | [facility] | | | and [place] | + + + | Address | Unknown | + + + | Phone | Unavailable | + + + Support + + + + + | Name | Relationship | Address | Phone | + + + + + | Jenn Land | ECON | [address] | | | | | [place] | | | | | [address] | | + + + + + Care Team Providers + +------+ + | Care Cyberathlete Name | Role | Phone | + +------+ + | Nicolasa Leavitt | PCP | | + +------+ + Reason for Visit +--------+ + | Reason | Comments | +--------+ + | Other | records request | +--------+ + Encounter Details +--------+ + + + + | Date | Type | Department | Care Team | Description | +--------+ + + + + | 02/18/ | Telephone | [facility] | Jaydon Maxwell, | Other (records | | 2019 | | NEUROLOGY [address] | [facility] | request ) | | | | [address] | Commercial [employer]ant | | | | | [place], [place] | | | | | | [address] | | | | | | [phone] | | | +--------+ + + + [...] 2018 | Visit | | MD Al HERNANDEZ | | | | | | [address] | | | | | | [place] [address] | | | | | | [phone] | | | | | | | | +--------+---------+ + + + | 06/03/ | Office | Neurology | Jennifer Mcnair, | | | 2018 | Visit | | MD Al HERNANDEZ | | | | | | [address] | | | | | | [place] [address] | | | | | | [phone] | | | | | | | | +--------+---------+ + + + documented as of this encounter Visit Diagnoses Not on filedocumented in this encounter"
--- OUTSIDE RECORDS SUMMARY | ~2019-05-11 | XMS | Encounter Summary ---
Demographics + + + | Address | [address] | | | [place] [address] | + + + | Home Phone | | + + + | Preferred Language | Unknown | + + + | Marital Status | | + + + | Restoration Affiliation | 1037 | + + + | Race | Unknown | + + + | Ethnic Group | Unknown | + + + Author + + + | Author | [facility] | | | and [place] | + + + | Organization | [facility] | | | [...] [place], [place] | | | | | [address] | | + + + + + Care Team Providers + +------+ + | Care Premium Note Interest Calculator Clerk Name | Role | Phone | + +------+ + | Nicolasa Leavitt | PCP | | + +------+ + Encounter Details +--------+ + + + + | Date | Type | Department | Care Team | Description | +--------+ + + + + | 04/01/ | Imaging | [facility] | Provider, | | | 2019 | Exam | [facility] | MD Mariya Rodriguez | | | | | IMAGING | [place] | | | | | [phone] | [place] [address] | | +--------+ + + + + [...] | | | | | | [place] [address] | | | | | | [phone] | | | | | | | | +--------+---------+ + + + | 06/03/ | Office | Neurology | Jennifer Mcnair, | | | 2018 | Visit | | MD Al HERNAN[address]Z | | | | | | [address] | | | | | | [place] [address] | | | | | | [phone] | | | | | | | | +--------+---------+ + + + documented as of this encounter Procedures + +--------+ + + + | [...] section. | + +--------+ + + + documented in this encounter Results XR Lumbar Spine 4 + Vw (03/19/2019 [...] + documented in this encounter Visit Diagnoses Not on filedocumented in this encounter"
--- OUTSIDE RECORDS SUMMARY | ~2019-05-11 | XMS | Encounter Summary ---
Demographics + + + | Address | [address] | | | [place] [address] | + + + | Home Phone | | + + + | Preferred Language | Unknown | + + + | Marital Status | | + + + | Religion Affiliation | 1037 | + + + | Race | Unknown | + + + | Ethnic Group | Unknown | + + + Author + + + | Author | [facility] | | | and [place] | + + + | Organization | [facility] | | | [...] [place], [place] | | | | | [address] | | + + + + + Care Team Providers + +------+ + | Care Machine Deburrer Name | Role | Phone | + [...] Pina ESP[place]ZA | | | | | [phone] | [place] [address] | | +--------+ + + + + [...] | 2018 | Visit | | MD lA HERNANDEZ | | | | | | [address] | | | | | | [place] [address] | | | | | | [phone] | | | | | | | | +--------+---------+ + + + | 06/03/ | Office | Neurology | Jennifer Mcnair, | | | 2018 | Visit | | MD Al HERNA[place]Z | | | | | | [address] | | | | | | [place] [address] | | | | | | [phone] | | | | | | | [...]
--- OUTSIDE RECORDS SUMMARY | ~2019-05-11 | XMS | Encounter Summary ---
Demographics + + + | Address | [address] | | | [place] [address] | + + + | Home Phone | | + + + | Preferred Language | Unknown | + + + | Marital Status | | + + + | Yazidism Affiliation | 1037 | + + + | Race | Unknown | + + + | Ethnic Group | Unknown | + + + Author + + + | Author | [facility] | | | and [place] | + + + | Organization | [facility] | | | [...] [place], [place] | | | | | [address] | | + + + + + Care Team Providers + +------+ + | Care Hazard Waste Handler Name | Role | Phone | + [...] Pina ESPINOZA | | | | | [phone] | [place] [address] | | +--------+ + + + + [...] | | | | | | [place] [address] | | | | | | [phone] | | | | | | | | +--------+---------+ + + + | 06/03/ | Office | Neurology | Jennifer Mcnair, | | | 2018 | Visit | | MD Al HERNAN[address]Z | | | | | | [address] | | | | | | [place] [address] | | | | | | [phone] | | | | | | | [...] + + documented in this encounter Results MRI Lumbar Spine wo Contrast (03/25/2019 [...]
--- OUTSIDE RECORDS SUMMARY | ~2019-05-11 | XMS | Encounter Summary ---
Demographics + + + | Address | [address] | | | [place] [address] | + + + | Home Phone | | + + + | Preferred Language | Unknown | + + + | Marital Status | | + + + | Restorationist Affiliation | 1037 | + + + | Race | Unknown | + + + | Ethnic Group | Unknown | + + + Author + + + | Author | [facility] | | | and [place] | + + + | Organization | [facility] | | | and [place] | + [...] [place], [place] | | | | | [address] | | + + + + + Care Team Providers + +------+ + | Care Airveyor Operator Name | Role | Phone | + +------+ + | Nicolasa Leavitt | PCP | | + +------+ + Reason for Visit + + + | Reason | Comments | + + + | Paperwork | [place] Chart Notes | + + + Encounter Details +--------+ + + + + | Date | Type | Department | Care Team | Description | +--------+ + + + + | 03/18/ | Telephone | [facility] | Jennifer Mcnair, | Paperwork (January | | 2018 | | NEUROLOGY [address] | [address] | Chart Notes) | | | | [address] | [address] | | | | | [place], [place] | [place] [address] | | | | | [address] | [phone] | | | | | [phone] | | | +--------+ + + + [...] [place] | | | | | | [place] [address] | | | | | | [phone] | | | | | | | | +--------+---------+ + + + | 06/03/ | Office | Neurology | Jennifer Mcnair, | | | 2019 | Visit | | MD Al HERNANDEZ | | | | | | [address] | | | | | | [place] [address] | | | | | | [phone] | | | | | | | | +--------+---------+ + + + documented as of this encounter Visit Diagnoses Not on filedocumented in this encounter"
--- OUTSIDE RECORDS SUMMARY | ~2019-05-11 | XMS | Encounter Summary ---
Demographics + + + | Address | [address] | | | [place] [address] | + + + | Home Phone | | + + + | Preferred Language | Unknown | + + + | Marital Status | | + + + | Samaritan Affiliation | 1037 | + + + | Race | Unknown | + + + | Ethnic Group | Unknown | + + + Author + + + | Author | [facility] | | | and [place] | + + + | Organization | [facility] | | | and [...] [place], [place] | | | | | [address] | | + + + + + Care Team Providers + +------+ + | Care Rig Site Engineer Name | Role | Phone | [...] + + | 03/31/ | Telephone | [facility] | Jennifer Mcnair, | Follow-up | | 2019 | | NEUROLOGY [address] | MD [address] | | | | | [address] | [address] | | | | | [place], [place] | [place] [address] | | | | | [address] | [phone] | | | | | [phone] | | | +--------+ + + + [...] D | | | | | | [place] [address] | | | | | | [phone] | | | | | | | | +--------+---------+ + + + | 06/03/ | Office | Neurology | Jennifer Mcnair, | | | 2019 | Visit | | MD Al HERNANDEZ | | | | | | [address] | | | | | | [place] [address] | | | | | | [phone] | | | | | | | | +--------+---------+ + + + documented as of this encounter Visit Diagnoses Not on filedocumented in this encounter"
--- OUTSIDE RECORDS SUMMARY | ~2019-05-11 | XMS | Clinical Summary ---
Demographics + + + | Address | [address] | | | [place] [address] | + + + | Home Phone | | + + + | Preferred Language | Unknown | + + + | Marital Status | | + + + | Mu-Ism Affiliation | 1037 | + + + | Race | Unknown | + + + | Ethnic Group | Unknown | + + + Author + + + | Author | [facility] | | | and [place] | + + + | Organization | [facility] | | | [...] [place], [place] | | | | | [address] | | + + + + + Care Team Providers + +------+ + | Care Conflicts Analyst Name | Role | Phone | + [...] + | Overview: Seeing Dr. Rodriguez at [facility] On | | Keppra, Dilantin, and Topiramate.02/14/18: Seizure | | Disorder:Previously followed by Dr. Nam, neurologist at [facility] | | [facility] and on levetiracetam at [...] request ) | | | | | Special Effects Technician | | +--------+ + + + + [...] | | | | | [place] [address] | | | | | | [phone] | | | | | | | | +--------+---------+ + + + | 06/03/ | Office | Neurology | Jennifer Mcnair, | | | 2019 | Visit | | MD Al HERNANDEZ | | | | | | [address] [place] | | | | | | [place] [address] | | | | | | [phone] | | | | | | | [...] +--------+ +---------+--------+ | MEDICARE | MEDICA | [id number] | | [phone] | | Medica | | | RE | | 018-Pr | 5 | | re | | | PART A | | esent | | | | | | AND B | | | | | | + +--------+ +--------+ +---------+--------+ | MEDICARE | MEDICA | [id number] | | [phone] | | Medica | [...] [place] | | | 5 (Home) | [address] | + +--------+ +--------+ + + | Cecilia Kelley | Person | Self | [birth year] | [address] | | | al/Fam | | 1965 | [phone] | [place], [place] | | | susie | | | 5 (Home) | [address] | + +--------+ +--------+ + + Advance Directives + + + + + | Type | Date Recorded | Patient | Explanation | | | | Prosthetic Technician | | + + + + + | Power of | | | | | Manager Community | | | | + + + + + | Advance | | | | | Directive | | | | + + + + +
--- OUTSIDE RECORDS SUMMARY | ~2019-05-11 | XMS | Encounter Summary ---
Demographics + + + | Address | [address] | | | [place] [address] | + + + | Home Phone | | + + + | Preferred Language | Unknown | + + + | Marital Status | | + + + | Shinto Affiliation | 1037 | + + + | Race | Unknown | + + + | Ethnic Group | Unknown | + + + Author + + + | Author | [facility] | | | and [place] | + + + | Organization | [facility] | | [...] [place], [place] | | | | | [address] | | + + + + + Care Team Providers + +------+ + | Care Grounds Manager Name | Role | Phone | + [...] | | | | [place] | [place] [address] | | | | | [address] | | | | | | [phone] | | | +--------+ + + + [...] | | | | | [place] [address] | | | | | | [phone] | | | | | | | | +--------+---------+ + + + | 06/03/ | Office | Neurology | Jennifer Mcnair, | | | 2018 | Visit | | MD Al HERNA[address]Z | | | | | | [address] | | | | | | [place] [address] | | | | | | [phone] | | | | | | | | +--------+---------+ + + + documented as of this encounter Visit Diagnoses Not on filedocumented in this encounter"
--- OUTSIDE RECORDS SUMMARY | ~2019-05-11 | XMS | Encounter Summary ---
Demographics + + + | Address | [address] | | | [place] [address] | + + + | Home Phone [...] [place], [place] | | | | | [address] | | + + + + + Care Team Providers + +------+ + | Care Asset Liability Analyst Name | Role | Phone | + +------+ + | Nicolasa Leavitt | PCP | | + +------+ + Reason for Visit + + + | Reason | Comments | + + + | Paperwork | [place] Chart Notes | + + + Encounter Details +--------+ + + + + | Date | Type | Department | Care Team | Description | +--------+ + + + + | 03/18/ | Telephone | [facility] | Jennifer Mcnair, | Paperwork (January | | 2018 | | NEUROLOGY [address] | [address] | Chart Notes) | | | | [address] | [address] | | | | | [place], [place] | [place] [address] | | | | | [address] | [phone] | | | | | [phone] | | | +--------+ + + + [...] | | | | | [place] [address] | | | | | | [phone] | | | | | | | | +--------+---------+ + + + | 06/03/ | Office | Neurology | Jennifer Mcnair, | | | 2019 | Visit | | MD Al HERNANDEZ | | | | | | [address] | | | | | | [place] [address] | | | | | | [phone] | | | | | | | | +--------+---------+ + + + documented as of this encounter Visit Diagnoses Not on filedocumented in this encounter"
--- OUTSIDE RECORDS SUMMARY | ~2019-05-11 | XMS | Encounter Summary ---
Demographics + + + | Address | [address] | | | [place] [address] | + + + | Home Phone | | + + + | Preferred Language | Unknown | + + + | Marital Status | | + + + | Anabaptism Affiliation | 1037 | + + + | Race | Unknown | + + + | Ethnic Group | Unknown | + + + Author + + + | Author | [facility] | | | and [place] | + + + | Organization | [facility] | | | and [...] [place], [place] | | | | | [address] | | + + + + + Care Team Providers + +------+ + | Care Sewage Treatment Plant Operator Name | Role | Phone | [...] Pina ESPINOZA | | | | | [phone] | [place] [address] | | +--------+ + + + + [...] | | | | | | [place] [address] | | | | | | [phone] | | | | | | | | +--------+---------+ + + + | 06/03/ | Office | Neurology | Jennifer Mcnair, | | | 2018 | Visit | | MD Al HERNA[address]Z | | | | | | [address] | | | | | | [place] [address] | | | | | | [phone] | | | | | | | [...]
--- OUTSIDE RECORDS SUMMARY | ~2019-05-11 | XMS | Encounter Summary ---
Demographics + + + | Address | [address] | | | [place] [address] | + + + | Home Phone | | + + + | Preferred Language | Unknown | + + + | Marital Status | | + + + | Mandaeism Affiliation | 1037 | + + + | Race | Unknown | + + + | Ethnic Group | Unknown | + + + Author + + + | Author | [facility] | | | and [place] | + + + | Organization | [facility] | | | [...] [place], [place] | | | | | [address] | | + + + + + Care Team Providers + +------+ + | Care House Servant Name | Role | Phone | + [...] + + | 03/23/ | Office | [facility] | Jennifer Mcnair, | Nonspecific | | 2019 | Visit | NEUROLOGY [address] | [address] | trini adams | | | | [address] | [address] | (Primary Dx); Robbi | | | | [place], [place] | [place] [address] | of trembling; | | | | [address] | [phone] | Driving safety issue | | | | [phone] | | | +--------+---------+ + + + [...] elaborates the work up don e in [place], [place]. The diagnosis was non epileptiform spells. She was later [facility]us [facility] - dated [facility]12[facility]. This does not focus [...] MRI brain with/without contrast on 01/20 at [facility] which states that it is a [...] will need to see an epileptologist at [facility] or other tertiary center in [facility] to consider inpatient monitoring. If episodes are [...] boat, scuba, work on heights, operate h [employer] machines or cook on open fire for [...] | | | | | [place] [address] | | | | | | [phone] | | | | | | | | +--------+---------+ + + + | 06/03/ | Office | Neurology | Jennifer Mncair, | | | 2018 | Visit | | MD Al HERNANDEZ | | | | | | [address] | | | | | | [facility] [place] [address] | | | | | | [phone] | | | | | | | | +--------+---------+ + + + documented as of this encounter Visit Diagnoses + + | Diagnosis | + + | Nonspecific paroxysmal yeell - Christa | + + | Spells of trembling Abnormal involuntary movements | + + | Driving safety issue Other specified personal history presenting hazards to health | + + documented in this encounter
--- OUTSIDE RECORDS SUMMARY | ~2019-05-11 | XMS | Encounter Summary ---
Demographics + + + | Address | [address] | | | [place] [address] | + + + | Home Phone | | + + + | Preferred Language | Unknown | + + + | Marital Status | | + + + | Gnosticist Affiliation | 1037 | + + + | Race | Unknown | + + + | Ethnic Group | Unknown | + + + Author + + + | Author | [facility] | | | and [place] | + + + | Organization | [facility] | | | [...] [place] | | | | | [address] | | + + + + + Care Team Providers + +------+ + | Care Oil Well Gun Perforator Operator Name | Role | Phone | [...] + + | 02/18/ | Telephone | [facility] | Jaydon Maxwell, | Other (records | | 2019 | | NEUROLOGY [address] | Elizabeth, Medical | request ) | | | | [address] | Manufacturing Management Associate | | | | | [place], [place] | | | | | | [address] | | | | | | [phone] | | | +--------+ + + + [...] | | | | | [place] [address] | | | | | | [phone] | | | | | | | | +--------+---------+ + + + | 06/03/ | Office | Neurology | Jennifer Mcnair, | | | 2018 | Visit | | MD Al HERNANDEZ | | | | | | [address] | | | | | | [place] [address] | | | | | | [phone] | | | | | | | | +--------+---------+ + + + documented as of this encounter Visit Diagnoses Not on filedocumented in this encounter"
--- OUTSIDE RECORDS SUMMARY | ~2019-05-11 | XMS | Encounter Summary ---
Demographics + + + | Address | [address] | | | [place] [address] | + + + | Home Phone | | + + + | Preferred Language | Unknown | + + + | Marital Status | | + + + | Jehovah'S Witness Affiliation | 1037 | + + + | Race | Unknown | + + + | Ethnic Group | Unknown | + + + Author + + + | Author | [facility] | | | and [place] | + + + | Organization | [facility] | | | [...] [place] | | | | | [address] | | + + + + + Care Team Providers + +------+ + | Care Rn Neurology Name | Role | Phone | + [...] + | 04/30/ | Documentati | [facility] | Michael Zamora | Pain Management | | 2019 | on | [address] | MD [address] | (Initial Encounter) | | | | [address] | [address] [place] | | | | | [place] | [place] [address] | | | | | [address] | [phone] | | | | | [phone] | | | +--------+ + + + [...] | 2019 | Visit | | MD [address] | | | | | | [address] | | | | | | [place] [address] | | | | | | [phone] | | | | | | | | +--------+---------+ + + + | 06/03/ | Office | Neurology | Jennifer Mcnair, | | | 2019 | Visit | | [address] | | | | | | [address] | | | | | | [place] [address] | | | | | | [phone] | | | | | | | | +--------+---------+ + + + documented as of this encounter Visit Diagnoses Not on filedocumented in this encounter"
--- OUTSIDE RECORDS SUMMARY | ~2019-05-11 | XMS | Encounter Summary ---
Demographics + + + | Address | [address] | | | [place] [address] | + + + | Home Phone [...] [place], [place] | | | | | [address] | | + + + + + Care Team Providers + +------+ + | Care Winding Operator Name | Role | Phone | [...] + + | 02/18/ | Office | [facility] | Tabby Jennifer, | Spells of trembling | | 2019 | Visit | NEUROLOGY [address] | [address] | (Primary Dx); | | | | [address] | [address] | Driving safety issue | | | | [place], [place] | [place] [address] | | | | | [address] | [phone] | | | | | [phone] | | | +--------+---------+ + + + [...] is here with her partner, lives in [place], [place] . Has been refer red by PCP - ROMAN Rivero for evaluation of spells/seizure disorder She has an extensive neurological history since 2014. She has been evaluated at [place], [place] and [place], [place] Patient reported that she has been [...] that she had seizures during her [facility]. She reports that stress anxiety, flashing lights or high-pitched sounds can trigger the sei zures. She states that she is mostly unconscious. Occasionally she is able to hear but not respon d during the spell. She is currently on Keppra, Dilantin, Topamax that was started in [place]. She has tried Vi mpat in the [...] been evaluated by Dr. Nam at [facility]. She has had an MRI of the brain which was reported normal Stressors include move across the country, marrying her , unable to work. She has 6 biological kids - one child has both pseudo and epileptic seizures reportedly (reviewed Dr Jerad Cruz's note in Care everywhere tab - [place], [place] - dated 09/12/15 - ER visits [...] note by neurologist Dr Roosevelt Rodriguez, [facility] [place] [facility] - dated This does not focus on prior history of pseudoseizures, but rather 'seizure disorder' and p sherley to keep her on Keppra. The focus was on cognitive impairment. Apparently patient brandon nt formal neuropsychological testing on August 16, 2016 by Zara Keller, PhD, in [facility] as; overall presentation was felt [...] for memory loss and to maintain a category planner for upcoming aimee nts, appointments and [...] this i n the past in both [place] and [place] but she did not have nabila in the work up. She is currently on 3 AEDs RECOMMENDATIONS I have discussed with the patient that the plan to obtain records from both cancers and als o review the ones from [place] under care everywhere tab. I understand her [...] I explained to the patient that per [place] and [place] State law he/she should not to drive a vehicle or vessel of any kind, swim, bathe alone, boat, scuba, work on heights, operate [employer] or cook on open fire for six [...] D | | | | | | [place] [address] | | | | | | [phone] | | | | | | | | +--------+---------+ + + + | 06/03/ | Office | Neurology | Tabby Jennifer, | | | 2018 | Visit | | [address] | | | | | | [address] | | | | | | [place] [address] | | | | | | [phone] | | | | | | | [...]
--- OUTSIDE RECORDS SUMMARY | ~2019-05-11 | XMS | Encounter Summary ---
Demographics + + + | Address | [address] | | | [place] [address] | + + + | Home Phone | | + + + | Preferred Language | Unknown | + + + | Marital Status | | + + + | Moravian Affiliation | 1037 | + + + | Race | Unknown | + + + | Ethnic Group | Unknown | + + + Author + + + | Author | [facility] | | | and [place] | + + + | Organization | [facility] | [...] [place] | | | | | [address] | | + + + + + Care Team Providers + +------+ + | Care Soot Blower Name | Role | Phone | + [...] | | | | [place] | [place] [address] | | | | | | [address] | Phone: | | | | | | Phone: | [phone] | | | | | | [phone] | Fax: | | | | | | Fax: | [phone] | | | | | | [phone] | | + +--------+ + + + + Encounter Details +--------+---------+ + + + | Date | Type | Department | Care Team | Description | +--------+---------+ + + + | 05/01/ | Office | [facility] | Michael Zamora | Lumbar herniated | | 2018 | Visit | [address] | MD [address] | disc (Primary Dx); | | | | [address] | [address] [place] | Class 2 obesity due | | | | [place], [place] | [place] [address] | to excess calories | | | | [address] | [phone] | with body mass index | | | | [phone] | | (BMI) of 36.0 to | [...] 9:45 AM PST Suicide Prevention Services Emergency [address] [place] [address] ([facility]) crisis line [phone] National Suicide Prevention Hotline 138-029-TFSF - Don't have surgery until you have [...] different from the original. Michael Zamora MD [address] [place] [address], [address] [place], [place] [address] FAX: [phone] NEUROSURGERY HISTORY AND PHYSICAL EXAMINATION CHIEF COMPLAINT: [...] has no apparent deficits with short or moth exterminator memory. MOTOR EXAM: (5 IS NORMAL) [...] | | | | | | [place] [address] | | | | | | [phone] | | | | | | | | +--------+---------+ + + + | 06/03/ | Office | Neurology | Jennifer Mcnair, | | | 2018 | Visit | | MD [address] | | | | | | [address] | | | | | | [place] [address] | | | | | | [phone] | | | | | | | [...]
--- OUTSIDE RECORDS SUMMARY | ~2019-05-11 | XMS | Encounter Summary ---
Demographics + + + | Address | [address] | | | [place] [address] | + + + | Home Phone [...] [place] | | | | | [address] | | + + + + + Care Team Providers + +------+ + | Care Multiple Drill Operator Name | Role | Phone | [...] + | 04/30/ | Documentati | [facility] | Michael Zamora | Pain Management | | 2019 | on | [address] | MD [address] | (Initial Encounter) | | | | [address] | [address] [place] | | | | | [place] | [place] [address] | | | | | [address] | [phone] | | | | | [phone] | | | +--------+ + + + [...] | | | | | | [place] [address] | | | | | | [phone] | | | | | | | | +--------+---------+ + + + | 06/03/ | Office | Neurology | Jennifer Mcnair, | | | 2019 | Visit | | [address] | | | | | | [address] | | | | | | [place] [address] | | | | | | [phone] | | | | | | | | +--------+---------+ + + + documented as of this encounter Visit Diagnoses Not on filedocumented in this encounter"
--- OUTSIDE RECORDS SUMMARY | ~2019-05-11 | XMS | Encounter Summary ---
Demographics + + + | Address | [address] | | | [place] [address] | + + + | Home Phone | | + + + | Preferred Language | Unknown | + + + | Marital Status | | + + + | Amish Affiliation | 1037 | + + + | Race | Unknown | + + + | Ethnic Group | Unknown | + + + Author + + + | Author | [facility] | | | and Jamaalana | + + + | Organization | [facility] | | | [...] [place], [place] | | | | | [address] | | + + + + + Care Team Providers + +------+ + | Care Day Care Assistant Name | Role | Phone | [...] + + | 03/23/ | Office | [facility] | Jennifer Mcnair, | Nonspecific | | 2019 | Visit | NEUROLOGY [address] | trini adams | | | | [address] | [address] | (Primary Dx); Robbi | | | | [place], [place] | [place] [address] | of trembling; | | | | [address] | [phone] | Driving safety issue | | | | [phone] | | | +--------+---------+ + + + [...] elaborates the work up don e in [place], [place]. The diagnosis was non epileptiform spells. She was later [facility]. This does not [...] MRI brain with/without contrast on 01/20 at [facility] which states that it is a [...] will need to see an epileptologist at [facility] or other tertiary center in [facility] to consider inpatient monitoring. If episodes [...] boat, scuba, work on heights, operate h ItsOn machines or cook on open fire for [...] | | | | | [place] [address] | | | | | | [phone] | | | | | | | | +--------+---------+ + + + | 06/03/ | Office | Neurology | Jennifer Mcnair, | | | 2018 | Visit | | MD Al [address]NA[address] | | | | | | [address] | | | | | | [place] [address] | | | | | | [phone] | | | | | | | [...]
--- OUTSIDE RECORDS SUMMARY | ~2019-05-11 | XMS | Encounter Summary ---
Demographics + + + | Address | [address] | | | [place] [address] | + + + | Home Phone | | + + + | Preferred Language | Unknown | + + + | Marital Status | | + + + | Latter Day Affiliation | 1037 | + + + | Race | Unknown | + + + | Ethnic Group | Unknown | + + + Author + + + | Author | [facility] | | | and Jamaalana | + + + | Organization | [facility] | | [...] [place], [place] | | | | | [address] | | + + + + + Care Team Providers + +------+ + | Care Sticker Machine Operator Name | Role | Phone | [...] + + | 03/18/ | Telephone | [facility] | Jennifer Mcnair, | Other (Concerns) | | 2019 | | NEUROLOGY [address] | MD [address] | | | | | [address] | [address] | | | | | [place], [place] | [place] [address] | | | | | [address] | [phone] | | | | | [phone] | | | +--------+ + + + [...] D | | | | | | [place] [address] | | | | | | [phone] | | | | | | | | +--------+---------+ + + + | 06/03/ | Office | Neurology | Jennifer Mcnair, | | | 2019 | Visit | | MD Al [address] | | | | | | [address] | | | | | | [place] [address] | | | | | | [phone] | | | | | | | | +--------+---------+ + + + documented as of this encounter Visit Diagnoses Not on filedocumented in this encounter"
--- OUTSIDE RECORDS SUMMARY | ~2019-05-11 | XMS | Encounter Summary ---
Demographics + + + | Address | [address] | | | [place] [address] | + + + | Home Phone | | + + + | Preferred Language | Unknown | + + + | Marital Status | | + + + | Quaker Affiliation | 1037 | + + + | Race | Unknown | + + + | Ethnic Group | Unknown | + + + Author + + + | Author | [facility] | | | and Jamaalana | + + + | Organization | [facility] | | | [...] [place], [place] | | | | | [address] | | + + + + + Care Team Providers + +------+ + | Care Healthcare Management Name | Role | Phone | + [...] | | | | [address] | [place] [address] | | | | | [address] | | | | | | [phone] | | | +--------+ + + + [...] | | | | | [place] [address] | | | | | | [phone] | | | | | | | | +--------+---------+ + + + | 06/03/ | Office | Neurology | Jennifer Mcnair, | | | 2018 | Visit | | MD [address] | | | | | | [address] | | | | | | [place] [address] | | | | | | [phone] | | | | | | | | +--------+---------+ + + + documented as of this encounter Visit Diagnoses Not on filedocumented in this encounter"
--- OUTSIDE RECORDS SUMMARY | ~2019-05-11 | XMS | Clinical Summary ---
Demographics + + + | Address | [address] | | | [place] [address] | + + + | Home Phone | | + + + | Preferred Language | Unknown | + + + | Marital Status | | + + + | Restoration Affiliation | Unknown | + + + | Race | Unknown | + + + | Ethnic Group | Unknown | + + + Author + + + | Author | [facility]erged With [facility] (Historical as of | | | 02-07-19) | + + + | Organization | Merged With [facility] (Historical as of | | | 02-07-19) | + + + | Address | Unknown | + + + | Phone | Unavailable | + + + Care Team Providers + +------+ + | Care Commercial Print Salesman Name | Role | Phone | + [...] +------+-------+ + | MEDICARE | MEDICA | [id number] | | | [address] | | | RE | | | | [place] [address] | | | IP-OP | | | [...] | | al/Gopi | | 1965 | [phone] [place] | | | susie | | | [phone] | [phone] | + +--------+ +--------+ + +"
--- OUTSIDE RECORDS SUMMARY | ~2019-05-11 | XMS | Encounter Summary ---
Demographics + + + | Address | [address] | | | [place] [address] | + + + | Home Phone | | + + + | Preferred Language | Unknown | + + + | Marital Status | | + + + | Anabaptist Affiliation | 1037 | + + + [...] [place] | | | | | [address] | | + + + + + Care Team Providers + +------+ + | Care Trouble Locater Name | Role | Phone | + [...] | | | | [place] | [place] [address] | | | | | | [address] | Phone: | | | | | | Phone: | [phone] | | | | | | [phone] | Fax: | | | | | | Fax: | [phone] | | | | | | [phone] | | + +--------+ + + + + Encounter Details +--------+---------+ + + + | Date | Type | Department | Care Team | Description | +--------+---------+ + + + | 05/01/ | Office | [facility] | Michael Zamora | Lumbar herniated | | 2018 | Visit | [address] | MD [address] | disc (Primary Dx); | | | | [address] | [address] [place] | Class 2 obesity due | | | | [place], [place] | [place] [address] | to excess calories | | | | [address] | [phone] | with body mass index | | | | [phone] | | (BMI) of 36.0 to | [...] 9:45 AM PST Suicide Prevention Services Emergency [address] [place] [address] ([facility]) crisis line [phone] National Suicide Prevention Hotline 724-394-HJSM - Don't have surgery until you have [...] different from the original. Michael Zamora MD [address] [place] [address], [address], [place] [address] FAX: [phone] NEUROSURGERY HISTORY AND PHYSICAL EXAMINATION CHIEF COMPLAINT: [...] no apparent deficits with short or long chain beamer memory. MOTOR EXAM: (5 IS NORMAL) * [...] | | | | | | [place] [address] | | | | | | [phone] | | | | | | | | +--------+---------+ + + + | 06/03/ | Office | Neurology | Jennifer Mcnair, | | | 2018 | Visit | | MD [address] | | | | | | [address] | | | | | | [place] [address] | | | | | | [phone] | | | | | | | [...]
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
--- OUTSIDE RECORDS SUMMARY | ~2019-05-11 | XMS | Encounter Summary ---
Demographics + + + | Address | [address] | | | [place] [address] | + + + | Home Phone | | + + + | Preferred Language | Unknown | + + + | Marital Status | | + + + | Denominational Affiliation | 1037 | + + + | Race | Unknown | + + + | Ethnic Group | Unknown | + + + Author + + + | Author | [facility] | | | and Jamaalana | + + + | Organization | [facility] | | | [...] [place], [place] | | | | | [address] | | + + + + + Care Team Providers + +------+ + | Care Data Migration Consultant Name | Role | Phone | + [...] + + | 03/31/ | Telephone | [facility] | Jennifer Mcnair, | Follow-up | | 2019 | | NEUROLOGY [address] | MD [address] | | | | | [address] | [address] | | | | | [place], [place] | [place] [address] | | | | | [address] | [phone] | | | | | [phone] | | | +--------+ + + + [...] D | | | | | | [place] [address] | | | | | | [phone] | | | | | | | | +--------+---------+ + + + | 06/03/ | Office | Neurology | Jennifer Mcnair, | | | 2019 | Visit | | MD [address] | | | | | | [address] | | | | | | [place] [address] | | | | | | [phone] | | | | | | | | +--------+---------+ + + + documented as of this encounter Visit Diagnoses Not on filedocumented in this encounter"
--- OUTSIDE RECORDS SUMMARY | ~2019-05-11 | XMS | Encounter Summary ---
Demographics + + + | Address | [address] | | | [place] [address] | + + + | Home Phone | | + + + | Preferred Language | Unknown | + + + | Marital Status | | + + + | Lutheran Affiliation | 1037 | + + + [...] [place], [place] | | | | | [address] | | + + + + + Care Team Providers + +------+ + | Care Local Company Flatbed Truck Driver Name | Role | Phone | + [...] + + | 03/18/ | Telephone | [facility] | Jennifer Mcnair, | Other (Concerns) | | 2019 | | NEUROLOGY [address] | MD [address] | | | | | [address] | [address] | | | | | [place], [place] | [place] [address] | | | | | [address] | [phone] | | | | | [phone] | | | +--------+ + + + [...] D | | | | | | [place] [address] | | | | | | [phone] | | | | | | | | +--------+---------+ + + + | 06/03/ | Office | Neurology | Jennifer Mcnair, | | | 2019 | Visit | | MD [address] | | | | | | [address] | | | | | | [place] [address] | | | | | | [phone] | | | | | | | | +--------+---------+ + + + documented as of this encounter Visit Diagnoses Not on filedocumented in this encounter"
[~2019-05-11 06:41] MED LIST changes: +MAXALT MLT5 MG PO
--- OUTSIDE RECORDS SUMMARY | 2019-05-11 06:44 | XMS ---
PreManage Notification: TRANG DIAZ Security Carry All Driver Events No recent Security Events currently on file CRITERIA MET - [facility] CARE PROVIDERS MELI JOHNSON Family Medicine Current PHONE: Unknown ROSAURA RAMOS Family Medicine Current PHONE: [phone] REJI CALDERÓN Physician Entry Level Finance 10/28/2018-Current PHONE: [phone] Laura Mojica Mental Health Provider 11/27/2017-05/26/2018 PHONE: Unknown ROSAURA RAMOS Primary Care Current PHONE: [phone] MELI JOHNSON Primary Care Current PHONE: [phone] VIN HAGEN Primary Care Current PHONE: Unknown BO DOLL Primary Care Current PHONE: Unknown Mlei Johnson Primary Care Current PHONE: Unknown MELI JOHNSON [facility] Current PHONE: Unknown RONNIE TINEO Primary Care 07/22/2017-[facility] PHONE: [phone] SKYLAR CARSON [facility] Current PHONE: Unknown LYNDON SHETH [facility] PHONE: Unknown LYNDON PARK [facility] PHONE: Unknown Vinh has no Care Guidelines for this patient. [place] VISIT COUNT (12 MO.) 6 KISHORE Torres TOTAL 6 NOTE: Visits indicate total known visits. ED/UCC VISIT TRACKING (12 MO.) 05/11/2019 06:42 KISHORE [place] TYPE: Emergency COMPLAINT: - multiple seizers 03/02/2019 17:[address] [facility] [place] TYPE: Emergency COMPLAINT: - LEG/FOOT NUMBNESS DIAGNOSES: - Other terminal gauger (current) drug therapy - Major depressive disorder, single episode, unspecified - Allergy status to other anti-infective agents status - Sciatica, left side - Anxiety disorder, unspecified - Pain in left leg - Personal history of nicotine dependence 02/01/2019 15:31 [facility] [place] TYPE: Emergency COMPLAINT: - SLURRED SPEECH,HEADACHE,UNSTEADY GAIT DIAGNOSES: - Weakness - Personal history of nicotine dependence - Major depressive disorder, single episode, unspecified - Slurred speech - Headache - Allergy status to other anti-infective agents status - Anxiety disorder, unspecified - Acute pharyngitis, unspecified - Other terminal gauger (current) drug therapy [facility]2018 [facility] [place] [facility] COMPLAINT: - MILD SOB DIAGNOSES: - Acquired absence of both cervix and uterus - Anxiety disorder, unspecified - Allergy status to oth drug/meds/biol subst status - Personal history of nicotine dependence - Other seasonal allergic rhinitis - Major depressive disorder, single episode, unspecified - Other shelter (current) drug therapy - Cough 10/05/2018 10:29 KISHORE [place]ana [place] TYPE: Emergency COMPLAINT: - SEIZURE,DIZZINESS, RIGHT SIDED WEAKNESS DIAGNOSES: - Major depressive disorder, single episode, unspecified - Personal history of nicotine dependence - Epilepsy, unsp, not intractable, without status epilepticus - Gómez's palsy - Other terminal gauger (current) drug therapy - Anxiety disorder, unspecified - Allergy status to oth drug/meds/biol subst status - Paresthesia of skin 06/26/2018 20:28 KISHORE [place] TYPE: Emergency COMPLAINT: - R WRIST/HAND PAIN,INJURY DIAGNOSES: - Pain in right hand - Anxiety disorder, unspecified - Major depressive disorder, single episode, unspecified - Disp fx of triquetrum bone, right wrist, init for clos fx - Acquired absence of both cervix and uterus - Fall on same level due to stepping on an object, init encntr - Migraine, unsp, not intractable, without status migrainosus - Allergy status to oth drug/meds/biol subst status - Personal history of nicotine dependence - Other terminal gauger (current) drug therapy INPATIENT VISIT TRACKING (12 MO.) No inpatient visits to display in this time frame [email or web address]
[2019-05-11] MEDS ORDERED: HYDROXYZINE PAM25 MG PO (06:59)
[2019-05-11] MEDS ORDERED: ASPIRIN81 MG PO (06:59)
[2019-05-11] MEDS ORDERED: RANITIDINE HCL150 M1 PO (07:00)
[2019-05-11] MEDS ORDERED: ONDANSETRON ODT8 MG PO (08:58)
[2019-05-11] MEDS ORDERED: CEFUROXIME250 MG PO (09:01)
== END 2019-05-11 09:20 | disposition home or self-care (01) ==
LOC: ED 06:41
DX: R56.9 Unspecified convulsions (principal); N39.0 Urinary tract infection, site not specified; R11.2 Nausea with vomiting, unspecified; G43.909 Migraine, unspecified, not intractable, without status migrainosus; F32.9 Major depressive disorder, single episode, unspecified; F41.9 Anxiety disorder, unspecified; Z87.891 Personal history of nicotine dependence; Z88.8 Allergy status to other drugs, medicaments and biological substances; Z79.899 Other long term (current) drug therapy; Z79.82 Long term (current) use of aspirin
CPT/HCPCS: 70450; 80053; 80185; 81001; 83690; 85025; 87088; 96361; 96365; 96375; 99284-25; J0696; J1953; J2060; J2405; J7040

== ENCOUNTER 2019-07-09 18:35 | Emergency (ER) | payer MEDICARE ==
[~2019-07-09] VITALS: Ht 175.3 cm; Wt 99.8 kg
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
--- OUTSIDE RECORDS SUMMARY | ~2019-07-09 | XMS | Encounter Summary ---
Demographics + + + | Address | [address] | | | [place] [address] | + + + | Home Phone | | + + + | Preferred Language | Unknown | + + + | Marital Status | | + + + | Voodoo Affiliation | 1037 | + + + | Race | Unknown | + + + | Ethnic Group | Unknown | + + + Author + + + | Author | [facility] | | | and [place] | + + + | Organization | [facility] | | | [...] [place], [place] | | | | | [address] | | + + + + + Care Team Providers + +------+ + | Care Senior Net Developer Name | Role | Phone | + +------+ + | Nicolasa Leavitt | PCP | | + +------+ + Reason for Visit + + + | Reason | Comments | + + + | Hospital Follow-up | seizures | + + + Evaluate & Treat (Routine) +--------+--------+ + + + + | Status | Reason | Specialty | Diagnoses / | Referred By | Referred To | | | | | Procedures | Contact | Contact | +--------+--------+ + + + + | Closed | | | Diagnoses | Tree, | Tabby, | | | | | Unspecified | ROMAN Ashton | MD Jennifer | | | | | convulsions | [address] | | | | | (HCC) | [address] | [address] | | | | | | [place] | | | | | | [place] | [place] | | | | | | [address] | [address] | | | | | | Phone: | Phone: | | | | | | [phone] | [phone] | | | | | | Fax: | Fax: | | | | | | [phone] | [phone] | +--------+--------+ + + + + Encounter Details +--------+---------+ + + + | Date | Type | Department | Care Team | Description | +--------+---------+ + + + | 05/14/ | Office | [facility] | Jennifer Mcnair, | Spells of trembling | | 2019 | Visit | NEUROLOGY [address] | (Primary Dx); | | | | [address] | [address] | Seizure disorder | | | | [place], [place] | [place] [address] | ([facility]); Driving | | | | [address] | [phone] | safety issue | | | | [phone] | | | +--------+---------+ + + + Social History + + + +--------+ + | Tobacco Use | Types | Packs/Day | Years | Date | | | | | Used | | + + + +--------+ + | Former Smoker | Cigarettes | 2.5 | 40 | 1977 - 10/09/2017 | + + + +--------+ + + [...] + + + | Blood Pressure | 122/73 | 05/14/2019 8:39 AM | | | | | PST | | + + + + + | Pulse | 64 | 05/14/2019 8:39 AM | | | | | PST | | + + + + + | Temperature | - | - | | + + + + + | Respiratory Rate | - | - | | + + + + + | Oxygen Saturation | 98% | 05/14/2019 8:39 AM | | | | | PST | | + + + + + | Inhaled Oxygen | - | - | | | Concentration | | | | + + + + + | Weight | 111.4 kg (245 lb 9.6 | 05/14/2019 8:39 AM | | | | oz) | PST | | + + + + + | Height | 175.3 cm (5' 9") | 05/14/2019 8:39 AM | | | | | PST | | + + + + + | Body Mass Index | 36.27 | 05/14/2019 8:39 AM | | | | | PST | | + + + + + documented in this encounter Patient Instructions Patient Instructions Jennifer Mcnair MD - 05/14/2019 8:45 AM PSTContinue Keppra 500mg t wice a day Talk to PCP about cognitive behavioral therapy that may help with stress management. Safety and legal instructions I explained to the patient that per [place] State law she should not to drive a vehicle or vess el of any kind, swim, bathe alone, boat, scuba, work on heights, operate heavy machines or c ook on open fire for six (6) months from any event of loss of consciousness, altered awarene ss or loss of body control. documented in this encounter Progress Notes Jennifer Mcnair MD - 05/14/2019 8:45 AM PSTFormatting of this note might be different f rom the original. HPI Patient's medications, allergies, past medical, surgical, social and family histories were obtained and reviewed as appropriate. Cecilia is a 54 yo lady who is here for follow up of spells/ seizures. Please refer to consult note dated 02/18/19 for details of HPI which I have reviewed. She is here with her partner today. About a week ago, she states that she developed stomach flu and could not keep Keppra down . A day later, she began to experience multiple seizures and was confused. She reportedly had at least 4 xnvt-vs-xnym each lasting about 1 to 3 minutes according to her partner. The re were no tongue bites but she wears dentures which was out at the time of the events. Jody or to the seizures, she was reportedly moaning in her sleep, and started to shake. She was given Tylenol, CBD and her anxiety medications but they did not help. Her partner drove her to the local ER. She had at least 2 in the emergency room. They loaded her on Keppra and gave her antibiotics. She has not had any further seizures since then. Between her last vi sit and the episodes a week ago she has had only one to 2 seizures. They have not kept a lo g. Current Outpatient Medications: cetirizine (ZYRTEC) 10 mg [...] mouth 2 times daily., Disp: , Rfl: topiramate (TOPAMAX) 100 mg tablet, Take 100 mg by mouth 2 times daily., Disp: , Rfl: verapamil (CALAN) 40 MG tablet, Take 40 mg by mouth Daily., Disp: , Rfl: ROS All other systems reviewed and negative except as mentioned in HPI Objective: Physical Exam BP 122/73 | Pulse 64 | Ht 1.753 m (5' 9") | Wt 111.4 kg (245 lb 9.6 oz) | SpO2 98% | B ME 36.27 kg/m Middle aged lady, in mild discomfort due to hip/back pain. HEENT - abrasions on forehead (per patient- she picks skin due to anxiety) Focused neurological exam Alert, oriented, fluent speech. PERRL. EOMI. No nystagmus. Face symmetric. 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 H/o gastritis/GI illness a week ago with increase in number of spells Stable after treated for the GI illness with antibiotics. RECOMMENDATIONS Patient and her partner were told about non epileptiform spells and epileptic seizures. Due to recurrent spells, advised her to keep track on the seizure log . If they are occurring frequently enough, will obtain ambulatory monitoring for 96 hours. If infrequent, she will need to see an epileptologist at [facility] or other tertiary center in [facility] to consider inpatient monitoring. If episodes are prolonged > 3 minutes or associated with respiratory distress/other signs o f emergency, to notify 911 Patient expressed understanding I have made no changes to her baseline antiseizure medications. I have discussed with the patient about cognitive behavioral therapy that may help handle s tress and reduce frequent spells. To see PCP to get a referral to a local therapist Safety and legal instructions I explained to the patient that per [place] and [place] State law she should not to drive a vehicle or vessel of any kind, swim, bathe alone, boat, scuba, work on heights, operate Saygent or cook on open fire for six (6) months from any event of loss of consciousness, altered awareness or loss of body control. Plan to follow up in 3 months or sooner regarding this. documented in this encounter Plan of Treatment +--------+---------+ + + + | Date | Type | Specialty | Care Team | Description | +--------+---------+ + + + | 07/14/ | Office | Neurosurgery | Michael Zamora | | | 2019 | Visit | | MD Lauren [address]gen | | | | | | [address] | | | | | | [place] [address] | | | | | | [phone] | | | | | | | | +--------+---------+ + + + | 09/01/ | Office | Neurology | Jennifer Mcnair | | | 2019 | Visit | | MD Al HERNANDEZ | | | | | | [address] | | | | | | [place] [address] | | | | | | [phone] | | | | | | | | +--------+---------+ + + + documented as of this encounter Visit Diagnoses + + | Diagnosis | + + | Spells of trembling - Primary Abnormal involuntary movements | + + | Seizure disorder (HCC) Unspecified epilepsy without mention of intractable epilepsy | + + | Driving safety issue Other specified personal history presenting hazards to health | + + documented in this encounter
--- OUTSIDE RECORDS SUMMARY | ~2019-07-09 | XMS | Encounter Summary ---
Demographics + + + | Address | [address] | | | [place] [address] | + + + | Home Phone | | + + + | Preferred Language | Unknown | + + + | Marital Status | | + + + | Mormon Affiliation | 1037 | + + + | Race | Unknown | + + + | Ethnic Group | Unknown | + + + Author + + + | Author | [facility] | | | and [place] | + + + | Organization | [facility] | | | [...] [place], [place] | | | | | [address] | | + + + + + Care Team Providers + +------+ + | Care Occupational Therapy Assistant Name | Role | Phone | + [...] [place] | | | | | | [address] | [address] | | | | | | Phone: | Phone: | | | | | | [phone] | [phone] | | | | | | Fax: | Fax: | | | | | | [phone] | [phone] | +--------+--------+ + + + + Encounter Details +--------+---------+ + + + | Date | Type | Department | Care Team | Description | +--------+---------+ + + + | 05/14/ | Office | [facility] | Jennifer Mcnair, | Spells of trembling | | 2019 | Visit | NEUROLOGY [address] | (Primary Dx); | | | | [address] | [address] | Seizure disorder | | | | [place], [place] | [place] [address] | ([facility]); Driving | | | | [address] | [phone] | safety issue | | | | [phone] | | | +--------+---------+ + + + [...] confused. She reportedly had at least 4 nzyd-eh-vlkd each lasting about 1 to 3 minutes [...] 9.6 oz) | SpO2 98% | B VA 36.27 kg/m Middle aged lady, in mild [...] will need to see an epileptologist at [facility] or other tertiary center in [facility] to consider inpatient monitoring. If episodes [...] alone, boat, scuba, work on heights, operate girnarsoft or cook on open fire for six [...] | | | | | | [place] [address] | | | | | | [phone] | | | | | | | | +--------+---------+ + + + | 09/01/ | Office | Neurology | Jennifer Mcnair | | | 2019 | Visit | | MD Al HERNANDEZ | | | | | | [address] | | | | | | [place] [address] | | | | | | [phone] | | | | | | | [...]
--- OUTSIDE RECORDS SUMMARY | ~2019-07-09 | XMS | Encounter Summary ---
Demographics + + + | Address | [address] | | | [place] [address] | + + + | Home Phone | | + + + | Preferred Language | Unknown | + + + | Marital Status | | + + + | Orthodoxy Affiliation | 1037 | + + + | Race | Unknown | + + + | Ethnic Group | Unknown | + + + Author + + + | Author | [facility] | | | and [place] | + + + | Organization | [facility] | | | and [place] | + + + | Address | Unknown | + + + | Phone | Unavailable | + + + Support + + + + + | Name | Relationship | Address | Phone | + + + + + | Jenn Land | ECON | [address] | | | | | [place], [place] | | | | | [address] | | + + + + + Care Team Providers + +------+ + | Care Interrelated Special Education Teacher Name | Role | Phone | + +------+ + | Nicolasa Leavitt | PCP | | + +------+ + Reason for Visit + + + | Reason | Comments | + + + | Paperwork | Napoleon Chart Notes | + + + Encounter Details +--------+ + + + + | Date | Type | Department | Care Team | Description | +--------+ + + + + | 03/18/ | Telephone | [facility] | Jennifer Mcnair, | Paperwork (January | | 2018 | | NEUROLOGY [address] | [address] | Chart Notes) | | | | [address] | [address] | | | | | [place], [place] | [place] [address] | | | | | [address] | [phone] | | | | | [phone] | | | +--------+ + + + [...] + + documented as of this encounter Plan of Treatment +--------+---------+ + + + | Date | Type | Specialty | Care Team | Description | +--------+---------+ + + + | 07/14/ | Office | Neurosurgery | Michael Zamora | | | 2019 | Visit | | MD [address] | | | | | | [place] | | | | | | [place] [address] | | | | | | [phone] | | | | | | | | +--------+---------+ + + + | 09/01/ | Office | Neurology | Jennifer Mcnair, | | | 2019 | Visit | | MD Al HERNANDEZ | | | | | | [address] | | | | | | [place] [address] | | | | | | [phone] | | | | | | | | +--------+---------+ + + + documented as of this encounter Visit Diagnoses Not on filedocumented in this encounter"
--- OUTSIDE RECORDS SUMMARY | ~2019-07-09 | XMS | Encounter Summary ---
Demographics + + + | Address | [address] | | | [place] [address] | + + + | Home Phone | | + + + | Preferred Language | Unknown | + + + | Marital Status | | + + + | Islam Affiliation | 1037 | + + + | Race | Unknown | + + + | Ethnic Group | Unknown | + + + Author + + + | Author | [facility] | | | and [place] | + + + | Organization | [facility] | | | and [...] [place], [place] | | | | | [address] | | + + + + + Care Team Providers + +------+ + | Care Environmental Technology Professor Name | Role | Phone | + +------+ + | Nicolasa Leavitt | PCP | | + +------+ + Encounter Details +--------+ + + + + | Date | Type | Department | Care Team | Description | +--------+ + + + + | 05/13/ | Orders Only | [facility] | [facility] | Lumbar radiculopathy | | 2019 | | PHYSIATRY [address] | [address], [address] | (Primary Dx) | | | | [place], | [place] | | | | | [place] [address] | [address] | | | | | [phone] | | | +--------+ + + + + Social History + + [...] | | | | | [place] [address] | | | | | | [phone] | | | | | | | | +--------+---------+ + + + | 03/11/ | Office | Neurology | Lyn Mcnaira, | | | 2019 | Visit | | MD Al [address]NA[address]Z | | | | | | [address] | | | | | | [place] [address] | | | | | | [phone] | | | | | | | | +--------+---------+ + + + documented as of this encounter Results FL LIBERTAD Lumbar Transforaminal (05/29/2019 12:43 PM PST) + + | Specimen | + + | | + + + + + | Narrative | Performed At | + + + | 05/29/2019 | [facility] | | Transforaminal Epidural Steroid InjectionDiagnosis: Lumbar | | | radiculopathyICD-10 Code M54.16 Cecilia Kelley presents to the | | | fluoroscopy suite for a fluoroscopically-guided left L4-L5 | | | transforaminal epidural steroid injection as part of conservative | | | management for chronic pain with lumbar radiculopathy and degenerative | | | disc disease. After informed consent was obtained, the patient lay | | | in the prone position on the fluoroscopy table. The area was | | | identified under fluoroscopic guidance. The area was prepped and | | | draped in sterile fashion. A 25-gauge, 1.5-inch needle was inserted | | | into this region and approximately 3 mL of buffered 1% lidocaine was | | | infused. Then, a 22-gauge spinal needle was inserted into the | | | posterior superior transforaminal space and advanced into the epidural | | | space under fluoroscopic guidance. Confirmation into the epidural | | | space was obtained with infusion of approximately 1 mL of Omnipaque | | | contrast which showed epidural flow as well as nerve sheath flow. | | | Then, a combination of 1.5 mL of 1% lidocaine and 1 mL of 10 | | | mg/mL Dexamethasone was infused. The patient tolerated the procedure | | | well without complications. Pre- and post-procedure blood pressures | | | were stable. The patient was given verbal as well as written | | | follow-up instructions. Prior to the start of the procedure, the | | | following were performed and/or verified, including correct patient | | | identity, correct site/side marked and visible, agreement on the | | | procedure to be done, correct patient positioning and an accurate | | | procedure consent form. Any safety precautions based on clinical | | | history and/or medication use have been addressed. I personally | | | performed the procedure above. Estimated blood loss: | | | MinimalComplications: NoneFindings: As expectedAnesthesia: Local | | | 1% Lidocaine | | |I personally performed the procedure above. | | | | | |Estimated blood loss: Minimal | | |Complications: None | | |Findings: As expected | | |Anesthesia: Local 1% Lidocaine | | | | | + + + + +---------+ + + | Performing | Address | City/State/Zipcode | Phone Number | | Organization | | | | + +---------+ + + | [facility] | | | | + +---------+ + + documented in this encounter Visit Diagnoses + + | Diagnosis | + + | Lumbar radiculopathy - Primary Thoracic or lumbosacral neuritis or radiculitis, | | unspecified | + + documented in this encounter"
--- OUTSIDE RECORDS SUMMARY | ~2019-07-09 | XMS | Encounter Summary ---
Demographics + + + | Address | [address] | | | [place] [address] | + + + | Home Phone | | + + + | Preferred Language | Unknown | + + + | Marital Status | | + + + | Tenriism Affiliation | 1037 | + + + [...] Jenn Land | ECON | [address] | | | | | [place] | | | | | [address] | | + + + + + Care Team Providers + +------+ + | Care Hi Ranger Operator Name | Role | Phone | + +------+ + | Nicolasa Leavitt | PCP | | + +------+ + Reason for Visit + + + | Reason | Comments | + + + | Pain Management | Initial Encounter | + + + Encounter Details +--------+ + + + + | Date | Type | Department | Care Team | Description | +--------+ + + + + | 04/30/ | Documentati | [facility] | Michael Zamora | Pain Management | | 2019 | on | [address] | MD [address] | (Initial Encounter) | | | | [address] | [address] [place] | | | | | [place] | [place] [address] | | | | | [address] | [phone] | | | | | [phone] | | | +--------+ + + + [...] Neurosurgery | Michael Zamora | | | 2020 | Visit | | MD Lauren Virgen | | | | | | [address] [place] | | | | | | [place] [address] | | | | | | [phone] | | | | | | | | +--------+---------+ + + + | 09/01/ | Office | Neurology | Jennifer Mcnair, | | | 2019 | Visit | | MD Al HERNANDEZ | | | | | | [address] | | | | | | [place] [address] | | | | | | [phone] | | | | | | | | +--------+---------+ + + + documented as of this encounter Visit Diagnoses Not on filedocumented in this encounter"
--- OUTSIDE RECORDS SUMMARY | ~2019-07-09 | XMS | Encounter Summary ---
Demographics + + + | Address | [address] | | | [place] [address] | + + + | Home Phone | | + + + | Preferred Language | Unknown | + + + | Marital Status | | + + + | Jainism Affiliation | 1037 | + + + | Race | Unknown | + + + | Ethnic Group | Unknown | + + + Author + + + | Author | [facility] | | | and [place] | + + + | Organization | [facility] | | | and [...] [place], [place] | | | | | [address] | | + + + + + Care Team Providers + +------+ + | Care Associate Software Engineer Name | Role | Phone | + +------+ + | Nicolasa Leavitt | PCP | | + +------+ + Reason for Visit + + + | Reason | Comments | + + + | Paperwork | [place] Chart Notes | + + + Encounter Details +--------+ + + + + | Date | Type | Department | Care Team | Description | +--------+ + + + + | 03/18/ | Telephone | [facility] | Jennifer Mcnair, | Paperwork (January | | 2018 | | NEUROLOGY [address] | Chart Notes) | | | | [address] | [address] | | | | | [place], [place] | [place] [address] | | | | | [address] | [phone] | | | | | [phone] | | | +--------+ + + + [...] | | | | | [place] [address] | | | | | | [phone] | | | | | | | | +--------+---------+ + + + | 09/01/ | Office | Neurology | Jennifer Mcnair, | | | 2019 | Visit | | MD Al HERNANDEZ | | | | | | [address] | | | | | | [place] [address] | | | | | | [phone] | | | | | | | | +--------+---------+ + + + documented as of this encounter Visit Diagnoses Not on filedocumented in this encounter"
--- OUTSIDE RECORDS SUMMARY | ~2019-07-09 | XMS | Encounter Summary ---
Demographics + + + | Address | [address] [place] [address] | | | [place] [address] | + + + | Home Phone | | + + + | Preferred Language | Unknown | + + + | Marital Status | | + + + | Mormon Affiliation | 1037 | + + + | Race | Unknown | + + + | Ethnic Group | Unknown | + + + Author + + + | Author | [facility] | | | and [place] | + + + | Organization | [facility] | | | and [place] | + + + | Address | Unknown | + + + | Phone | Unavailable | + + + Support + + + + + | Name | Relationship | Address | Phone | + + + + + | Jenn Land | ECON | [address] | | | | | [place], [place] | | | | | [address] | | + + + + + Care Team Providers + +------+ + | Care Machine Engineer Name | Role | Phone | + +------+ + | Nicolasa Leavitt | PCP | | + +------+ + Reason for Visit + + + | Reason | Comments | + + + | Follow-up | | + + + Encounter Details +--------+ + + + + | Date | Type | Department | Care Team | Description | +--------+ + + + + | 07/01/ | Telephone | [facility] | Michael Zamora | Follow-up | | 2020 | | NEUROSURGERY [address] | [address] | | | | | [address] | [address] [place] | | | | | [place], [place] | [place] [address] | | | | | [address] | [phone] | | | | | [phone] | | | +--------+ + + + [...] | | | | | | [address] [place] | | | | | | [place] [address] | | | | | | [phone] | | | | | | | | +--------+---------+ + + + | 09/01/ | Office | Neurology | Jennifer Mcnair, | | | 2019 | Visit | | MD Al HERNANDEZ | | | | | | [address] | | | | | | [place] [address] | | | | | | [phone] | | | | | | | | +--------+---------+ + + + documented as of this encounter Visit Diagnoses Not on filedocumented in this encounter"
--- OUTSIDE RECORDS SUMMARY | ~2019-07-09 | XMS | Encounter Summary ---
Demographics + + + | Address | [address] | | | [place] [address] | + + + | Home Phone | | + + + | Preferred Language | Unknown | + + + | Marital Status | | + + + | Tenriism Affiliation | 1037 | + + + | Race | Unknown | + + + | Ethnic Group | Unknown | + + + Author + + + | Author | [facility] | | | and [place] | + + + | Organization | [facility] | | [...] [place], [place] | | | | | [address] | | + + + + + Care Team Providers + +------+ + | Care Coal Pipeline Operator Name | Role | Phone | + +------+ + | Nicolasa Leavitt | PCP | | + +------+ + Encounter Details +--------+ + + + + | Date | Type | Department | Care Team | Description | +--------+ + + + + | 04/30/ | Abstract | [facility] | Kvng, | | | 2019 | | [address] | MD Mariya Rodriguez | | | | | [address] | [address] [place] | | | | | [place] | [place] [address] | | | | | [address] | | | | | | [phone] | | | +--------+ + + + [...] | Neurosurgery | Michael Zamora | | 2019 | Visit | | MD [address] | | | | | | [place] | | | | | | [place] [address] | | | | | | [phone] | | | | | | | | +--------+---------+ + + + | 09/01/ | Office | Neurology | Jennifer Mcnair, | | | 2019 | Visit | | MD Al HERNANDEZ | | | | | | [address] | | | | | | [place] [address] | | | | | | [phone] | | | | | | | | +--------+---------+ + + + documented as of this encounter Visit Diagnoses Not on filedocumented in this encounter"
--- OUTSIDE RECORDS SUMMARY | ~2019-07-09 | XMS | Encounter Summary ---
Demographics + + + | Address | [address] | | | [place] [address] | + + + | Home Phone | | + + + | Preferred Language | Unknown | + + + | Marital Status | | + + + | Jehovah'S Witness Affiliation | 1037 | + + + | Race | Unknown | + + + | Ethnic Group | Unknown | + + + Author + + + | Author | [facility] | | | and [place] | + + + | Organization | [facility] | | | and [place] | + + + | Address | Unknown | + + + | Phone | Unavailable | + + + Support + + + + + | Name | Relationship | Address | Phone | + + + + + | Jenn Land | ECON | [address] | | | | | [place], [place] | | | | | [address] | | + + + + + Care Team Providers + +------+ + | Care Speech Therapist Early Intervention Name | Role | Phone | + +------+ + | Nicolasa Leavitt | PCP | | + +------+ + Reason for Visit + + + | Reason | Comments | + + + | Seizures | evaluation and treatment | + + + Encounter Details +--------+---------+ + + + | Date | Type | Department | Care Team | Description | +--------+---------+ + + + | 02/18/ | Office | [facility] | Tabby Jennifer, | Spells of trembling | | 2019 | Visit | NEUROLOGY [address] | (Primary Dx); | | | | [address] | [address] | Driving safety issue | | | | [place], [place] | [place] [address] | | | | | [address] | [phone] | | | | | [phone] | | | +--------+---------+ + + + [...] + + + | Blood Pressure | 126/77 | 02/18/2019 10:22 AM | | | | | PDT | | + + + + + | Pulse | 68 | 02/18/2019 10:22 AM | | | | | PDT | | + + + + + | Temperature | - | - | | + + + + + | Respiratory Rate | - | - | | + + + + + | Oxygen Saturation | - | - | | + + + + + | Inhaled Oxygen | - | - | | | Concentration | | | | + + + + + | Weight | 107.6 kg (237 lb 4.8 | 02/18/2019 10:22 AM | | | | oz) | PDT | | + + + + + | Height | 175.3 cm (5' 9") | 02/18/2019 10:22 AM | | | | | PDT | | + + + + + | Body Mass Index | 35.04 | 02/18/2019 10:22 AM | | | | | PDT | | + + + + + documented in this encounter Progress Notes Jennifer Mcnair MD - 02/18/2019 10:05 AM PDTFormatting of this note might be different f rom the original. Patient ID: [id number] Patient's medications, allergies, past medical, surgical, social and family histories were obtained and reviewed as appropriate. Cecilia is a 53 yo lady who is here with her partner, lives in [place], [place] . Has been refer red by PCP - ROMAN Rivero for evaluation of spells/seizure disorder She has an extensive neurological history since 2014. She has been evaluated at [place], [place] and [place], [place] Patient reported that she has been seen by various neurologists in the past 4 years and she felt that she has not received a satisfactory explanation as to what has been happening to her. She is disabled and unable to drive. She would like to gain back her life. Onset - 2015 In December 2014 patient had a concussion at a family reunion when she fell backwards and hit t he back of her head on the ground. Seizure type activity/spells began in March 2015. They have been unchanged. Type A-patient and her partner called these as tonic-clonic events-she clenches her feet an d hands. There are involuntary jerking movements of the arms and legs in different directio ns. Her body stays tense. Her eyes are closed. Last anywhere from 1 to 3 minutes. They h ave varied from 3-4 a day to about 1 week. Sometimes they occur about once a month. Fluctu ates and it depends on her stress levels. Type B-absent seizures-stares off into space for 2 to 3 minutes during the middle of sation. She has had only 6 episodes in 4 years. She reported tongue lacerations during 2 spells. She also had urinary incontinence 2-3 timbo es. She has fallen to the ground a couple of times. Crumbles down without hitting the grou nd hard. Her partner did not note any change in color during any of the events.Patient stat es that she sometimes gets a warning like a creeping sensation at the back of her head. She is able to go sit down or lie down. She was a full-term baby born by forceps assisted vaginal delivery. No history of febrile seizures. No history of meningitis or encephalitis. No family history of epilepsy in at le ast 2 generations. She does not recall her mother saying that she had seizures during her c [facility]. She reports that stress anxiety, flashing lights or high-pitched sounds can trigger the sei zures. She states that she is mostly unconscious. Occasionally she is able to hear but not respon d during the spell. She is currently on Keppra, Dilantin, Topamax that was started in [place]. She has tried Vi mpat in the past. Patient states that she also uses CBD and sometimes THC for sleep and recreation. She states that she has been told that her seizures are not epileptic. She had a ambulator y video EEG in 2016 while she was on medications. There were no reported changes on the EEG during the events. She has also had 4-5 regular EEGs which were reported normal. She states that she has been evaluated by Dr. Nam at [facility]. She has had an MRI of the brain which was reported normal Stressors include move across the country, marrying her , unable to work. She has 6 biological kids - one child has both pseudo and epileptic seizures reportedly (reviewed Dr Jerad Cruz's note in Care everywhere tab - [place], [place] - dated 09/12/15 - ER visits in April 2015 reportedly led to her being started on Keppra, Dilantin and Vimpat. During one ER visit - tox screen positive for cannabis and barbiturates. Also BAL was 98). Note mentions 2 MRI brain and [address] Cruz arranged for ambulatory EEG in 2015. Per note dated 03/16/16 - "She said she had few seizures since previous visit and ther e are different types of seizures this seizure where she only shake in bilateral upper extre mity but continued to talk and respond surroundings and there is other kinds of seizure were she shake grunt and does not respond cannot talk and is not aware of what is going on there is also other kinds of seizure where she get stiff all over and make a fist in her hands. A ll these different seizures will be precipitated by increased level of stress and one time t here was loud noise that put her into seizure". Also per this note - ambulatory EEG whenever multiple different kinds of seizures during the EEG recording and they were all non-epilept ogenic. Previously the regular baseline EEG was also normal. She was then recommended to get off AEDs except topamax for migraine prophylaxis. Was referred to a psychologist. 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 [facility] dated This does not focus on prior history of pseudoseizures, but rather 'seizure disorder' and p sherley to keep her on Keppra. The focus was on cognitive impairment. Apparently patient brandon nt formal neuropsychological testing on August 16, 2016 by Zara Keller, PhD, in [facility] as; overall presentation was felt to be consistent with mild cognitive impairment with mild impaired verbal memory and processing speed; noted to manifest generally adequate attention and concentration skills; no distractibility of significance and neuropsychological profile revealed that she was above average in her processing of visual information; capable of usin g visual cues from the environment to alter her behavior and language skills were generally intact; generally able to follow normal conversations, instructions and language-based proce dures; speed of processing information (visual or verbal) was low suggesting she will be slo w and doing some cognitive tasks; these findings suggest difficulties in processing multiple auditory inputs of information; this pose problems with following a group conversation or r esponding to auditory feedback such as alarms and in noisy environment; neuropsychologist re commended compensatory strategies for memory loss and to maintain a workforce planner for upcoming aimee nts, appointments and a large calendar in the house; once she is stabilized on a medication regimen speech therapy could be added to help with strategies to work on memory loss; as wel l as for addressing challenges and to develop her memory. Current Outpatient Medications: cetirizine (ZYRTEC) 10 mg [...] mg by mouth Daily., Disp: , Rfl: Review of Systems Constitutional: Appetite change HENT: Positive for hearing loss and tinnitus. Trouble swallowing Cardiovascular: Positive for leg swelling. Gastrointestinal: Positive for constipation. Musculoskeletal: Positive for back pain, joint pain and myalgias. Gait problems Joint swelling Skin: Positive for rash. Neurological: Positive for seizures and headaches. Facial asymmetry numbness Speech difficulty Psychiatric/Behavioral: Positive for memory loss. The patient is nervous/anxious. Agitation Memory loss Decreased concentration Dysphonic mood Sleep disturbance All other systems reviewed and are negative. Objective: Physical Exam BP 126/77 | Pulse 68 | Ht 1.753 m (5' 9") | Wt 107.6 kg (237 lb 4.8 oz) | BMI 35.04 kg/ m GENERAL: Middle aged lady, mild obesity, pleasant, in NAD HEENT: supple neck, discs normal on fundoscopic exam HEART: RRR, no murmur LUNGS: bilateral breath sounds heard, no rhonchi EXTREMITIES: No pedal edema NEUROLOGIC EXAM: COGNITION: awake, alert, oriented x4, able to name, repeat, register and recall 3/3 words, fluent speech, follows commands. CRANIAL NERVES: PERRL, visual zamora full, EOMI, no nystagmus, facial sensation intact to light touch, facial movement symmetric full, hearing intact to finger rub bilat, palate elevates symmetric, SCM and trapezius 5/5 bilat, tongue protrudes midline. MOTOR: tone and bulk normal, no pronator drift, strength 5/5 throughout Delt Bic Tric Interossei WE WF HF KF KE DF PF R 5 5 5 5 5 5 5 5 5 5 5 L 5 5 5 5 5 5 5 5 5 5 5 REFLEXES: 1+ symmetric bilateral biceps, triceps, brachioradialis, 1+ patella,trace josafat s. SENSORY: intact to light touch, cold, and vibration throughout. COORDINATION: Finger nose finger intact bilat, Heel to bolaños intact bilat. 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 It appears from history obtained from patient that she has had extensive work up for this i n the past in both [place] and [place] but she did not have nabila in the work up. She is currently on 3 AEDs RECOMMENDATIONS I have discussed with the patient that the plan to obtain records from both cancers and als o review the ones from [place] under care everywhere tab. I understand her frustrations but it is possible that after work-up here, it may not provid e any new insight into her condition. I have offered to refer her to an epileptologist if n eed be. I discussed with her that sometimes it is important to work with associated specialities in cluding counseling and psychiatry to help deal with stressors and other mental health issues . Patient expressed understanding I have made no changes to her baseline antiepileptic medication doses Advised her to keep a strict seizure log Her partner was encouraged to capture a couple of videos if patient is in a safe position d uring the events. Plan to follow-up in 2 to 3 months or sooner if needed Safety and legal instructions I explained to the patient that per [place] and [place] State law he/she should not to drive a vehicle or vessel of any kind, swim, bathe alone, boat, scuba, work on heights, operate [employer] or cook on open fire for six (6) months from any event of loss of consciousnes s, altered awareness or loss of body control. After patient left the clinic, I reviewed outside records as detailed in HPI. (record revie w time 35 minutes) documented in this encounter Plan of Treatment [...] [place] | | | | | | [place] [address] | | | | | | [phone] | | | | | | | | +--------+---------+ + + + | 09/01/ | Office | Neurology | Jennifer Mcnair, | | | 2019 | Visit | | MD Al HERNANDEZ | | | | | | [address] | | | | | | [place] [address] | | | | | | [phone] | | | | | | | [...]
--- OUTSIDE RECORDS SUMMARY | ~2019-07-09 | XMS | Encounter Summary ---
Demographics + + + | Address | [address] | | | [place] [address] | + + + | Home Phone | | + + + | Preferred Language | Unknown | + + + | Marital Status | | + + + | Episcopal Affiliation | 1037 | + + + | Race | Unknown | + + + | Ethnic Group | Unknown | + + + Author + + + | Author | [facility] | | | and Jamaalana | + + + | Organization | [facility] | | [...] [place] | | | | | [place] | | | | | [address] | | + + + + + Care Team Providers + +------+ + | Care Shells Inspector Name | Role | Phone | + [...] + | 04/30/ | Documentati | [facility] | Michael Zamora | Pain Management | | 2019 | on | [address] | MD [address] | (Initial Encounter) | | | | [address] | [address] [place] | | | | | [place] | [place] [address] | | | | | [address] | [phone] | | | | | [phone] | | | +--------+ + + + [...] | | | | | | [place] [address] | | | | | | [phone] | | | | | | | | +--------+---------+ + + + | 09/01/ | Office | Neurology | Jennifer Mcnair, | | | 2019 | Visit | | MD Al HERNAN[address]Z | | | | | | [address] | | | | | | [place] [address] | | | | | | [phone] | | | | | | | | +--------+---------+ + + + documented as of this encounter Visit Diagnoses Not on filedocumented in this encounter"
--- OUTSIDE RECORDS SUMMARY | ~2019-07-09 | XMS | Encounter Summary ---
Demographics + + + | Address | [address] | | | [place] [address] | + + + | Home Phone | | + + + | Preferred Language | Unknown | + + + | Marital Status | | + + + | Christianity Affiliation | 1037 | + + + | Race | Unknown | + + + | Ethnic Group | Unknown | + + + Author + + + | Author | [facility] | | | and Jamaalana | + + + | Organization | [facility] | | [...] [place], [place] | | | | | [address] | | + + + + + Care Team Providers + +------+ + | Care Domestic Violence Advocate Name | Role | Phone | + [...] [address] [place] | | | | | [place], [place] | [place] [address] | | | | | [address] | [phone] | | | | | [phone] | | | +--------+ + + + [...] | | | | | [place] [address] | | | | | | [phone] | | | | | | | | +--------+---------+ + + + | 09/01/ | Office | Neurology | Jennifer Mcnair, | | | 2019 | Visit | | MD Al HERNANDEZ | | | | | | [address] | | | | | | [place] [address] | | | | | | [phone] | | | | | | | | +--------+---------+ + + + documented as of this encounter Visit Diagnoses Not on filedocumented in this encounter"
--- OUTSIDE RECORDS SUMMARY | ~2019-07-09 | XMS | Encounter Summary ---
Demographics + + + | Address | [address] | | | [place] [address] | + + + | Home Phone | | + + + | Preferred Language | Unknown | + + + | Marital Status | | + + + | Spiritism Affiliation | 1037 | + + + | Race | Unknown | + + + | Ethnic Group | Unknown | + + + Author + + + | Author | [facility] | | | and Jamaalana | + + + | Organization | [facility] | | | [...] [place], [place] | | | | | [address] | | + + + + + Care Team Providers + +------+ + | Care Supervisor Furnace Room Name | Role | Phone | + +------+ + | Nicolasa Leavitt | PCP | | + +------+ + Reason for Visit +--------+ + | Reason | Comments | +--------+ + | Other | Concerns | +--------+ + Encounter Details +--------+ + + + + | Date | Type | Department | Care Team | Description | +--------+ + + + + | 03/18/ | Telephone | [facility] | Jennifer Mcnair, | Other (Concerns) | | 2019 | | NEUROLOGY [address] | MD [address] | | | | | [address] | [address] | | | | | [place], [place] | [place] [address] | | | | | [address] | [phone] | | | | | [phone] | | | +--------+ + + + [...] | 2020 | Visit | | MD [address] | | | | | | [place] | | | | | | [place] [address] | | | | | | [phone] | | | | | | | | +--------+---------+ + + + | 03/11/ | Office | Neurology | Jennifer Mcnair, | | | 2020 | Visit | | MD Al HERNANDEZ | | | | | | [address] | | | | | | [place] [address] | | | | | | [phone] | | | | | | | | +--------+---------+ + + + documented as of this encounter Visit Diagnoses Not on filedocumented in this encounter"
--- OUTSIDE RECORDS SUMMARY | ~2019-07-09 | XMS | Encounter Summary ---
Demographics + + + | Address | [address] | | | [place] [address] | + + + | Home Phone | | + + + | Preferred Language | Unknown | + + + | Marital Status | | + + + | Evangelical Affiliation | 1037 | + + + | Race | Unknown | + + + | Ethnic Group | Unknown | + + + Author + + + | Author | [facility] | | | and [place] | + + + | Organization | [facility] | | [...] [place] | | | | | [address] | | + + + + + Care Team Providers + +------+ + | Care Motor Teacher Name | Role | Phone | [...] + + | 02/18/ | Telephone | [facility] | Jaydon Maxwell, | Other (records | | 2019 | | NEUROLOGY [address] | Elizabeth, Medical | request ) | | | | [address] | Music Publicist | | | | | [place], [place] | | | | | | [address] | | | | | | [phone] | | | +--------+ + + + [...] | | | | | [place] [address] | | | | | | [phone] | | | | | | | | +--------+---------+ + + + | 09/01/ | Office | Neurology | Jennifer Mcnair, | | | 2020 | Visit | | MD Al HERNA[address]Z | | | | | | [address] | | | | | | [place] [address] | | | | | | [phone] | | | | | | | | +--------+---------+ + + + documented as of this encounter Visit Diagnoses Not on filedocumented in this encounter"
--- OUTSIDE RECORDS SUMMARY | ~2019-07-09 | XMS | Encounter Summary ---
Demographics + + + | Address | [address] | | | [place] [address] | + + + | Home Phone | | + + + | Preferred Language | Unknown | + + + | Marital Status | | + + + | Congregational Affiliation | 1037 | + + + [...] [place] | | | | | [place] | | | | | [address] | | + + + + + Care Team Providers + +------+ + | Care Boat Puller Name | Role | Phone | + +------+ + | Nicolasa Leavitt PCP | | + +------+ + Reason for Visit + + + | Reason | Comments | + + + | Back Pain | Low back - Left leg | + + + Evaluate & Treat (Routine) + +--------+ + + + + | Status | Reason | Specialty | Diagnoses / | Referred By | Referred To | | | | | Procedures | Contact | Contact | + +--------+ + + + + | Authorized | | Neurosurgery | Diagnoses | Ramirez, | [facility] | | | | | Lumbar disc | Bharathi Pate, | Neurosurgery | | | | | herniation | MD [address] | [address] | | | | | | [address] [place] | [address] | | | | | | [place], | [place], | | | | | | [place] | [place] [address] | | | | | | [address] | Phone: | | | | | | Phone: | [phone] | | | | | | [phone] | Fax: | | | | | | Fax: | [phone] | | | | | | [phone] | | + +--------+ + + + + Encounter Details +--------+---------+ + + + | Date | Type | Department | Care Team | Description | +--------+---------+ + + + | 05/01/ | Office | [facility] | Michael Zamora | Lumbar herniated | | 2018 | Visit | [address] | MD [address] | disc (Primary Dx); | | | | [address] | [address] [place] | Class 2 obesity due | | | | [place], [place] | [place] [address] | to excess calories | | | | [address] | [phone] | with body mass index | | | | [phone] | | (BMI) of 36.0 to | | | | | | 36.9 in adult, | | | | | | unspecified whether | | | | | | serious comorbidity | | | | | | present | +--------+---------+ + + + Social History + + + +--------+ + | Tobacco Use | Types | Packs/Day | Years | Date | | | | | Used | | + + + +--------+ + | Former Smoker | Cigarettes | 2.5 | 40 | 1978 - 10/09/2017 | + + + +--------+ [...] in this encounter Patient Instructions Patient Instructions Abbey Diamond RN - 05/01/2019 9:45 AM PST Suicide Prevention Services Emergency [address] [place] [address] ([facility]) crisis line [phone] National Suicide Prevention Hotline 558-630-ALWS - Don't have surgery until you have the 3 Un's = unbearable, unremitting, untreatable. If y ou decide to go forward with surgery please contact our office so we can submit to your insu nuris. Surgery may not take away your numbness but should help with your pain. - Surgery would be a L4-L5 Metrx assisted microdisectomy. - We can also refer you for an Left L4 nerve root block into your back with Dr. Vital before going forward with surgery. His office will contact you to schedule. - Let pain be your guide. If you are doing an activity that starts causing you pain, back off and ease back into it slowly. We don't want you taking any risks that do not need to be taken. - Great job and congratulations on your tobacco cessation. Please keep up the good work!! documented in this encounter Progress Notes Abbey Diamond RN - 05/01/2019 9:45 AM PSTWas called in to complete the C-SSRS with milka adams due to high scores on her PHQ-2/9, PHQ-9. She denies wishing that she were or that s he could go to sleep and not wake up and has never thought of killing herself. She states sh e is just frustrated but would never act on her frustrations. She denies having done anythin g, starting to do anything or preparing to do anything to end her life. She verbalizes frust ration with her physical limitations as she has just bought a new home with large yard and s he can't do yardwork that she enjoys doing. She also verbalized frustrations due to her havi ng a degree but not able to work in her field of study. She really is just tired of not feel ing well and wants her back to just feel better. She has a very supportive and family s upport system and is very knowledgeable of crisis lines available. Reinforced that there is always someone available to talk if she were to ever need assistance. She verbalizes underst anding. Dr Zamora notified of discussion. Electronically signed by Abbey Diamond RN at 01/2019 11:34 AM Michael Green MD - 05/01/2019 9:45 AM PSTFormatting of this note m ight be different from the original. Michael Zamora MD [address] [place] [address], [address] [place], [place] [id number] FAX: [phone] NEUROSURGERY HISTORY AND PHYSICAL EXAMINATION CHIEF COMPLAINT: Chief Complaint Patient presents with Back Pain Low back - Left leg HISTORY OF PRESENT ILLNESS: Cecilia Kelley is a 54 y.o. female with the complaint of connie k pain that began 2-3 months ago. She describes her sciatica is painful and is causing her pain into her buttock and down left her leg. She minimizes how much back pain that she has, saying that at worst it feels as though it was tight in her back The back symptoms have been gradually worsening. She rates the back pain as moderate to se lei. The back symptoms are daily. She describes the back pain as sharp, numbing, tingling and tight band. Leg pain is primarily in her left leg. Her symptoms improve with changing position and sitting and worsen with standing, sitting, walking, running and twisting. She does not report any change in bowel or bladder function recently. She has tried Opioids, NSAIDS and Steroids. She is not currently taking opiates, muscle re laxer's, or nerve medications. She has tried 2 different Medrol Doespacks with no benefit. 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 PAST MEDICAL HISTORY: Past Medical History: Diagnosis Date Acid reflux Allergic rhinitis Allergic state, initial encounter Anemia Angina at rest (HCC) Anxiety Arthralgia of left side of pelvis hip and femur Arthritis Arthropathy Blood transfusion without reported diagnosis Claustrophobia 5, not currently Para 6; 1 set of twins Heart murmur Heart palpitations High serum methylmalonate Insomnia Left sided sciatica Memory loss Osteoarthritis, generalized Other spondylosis with radiculopathy, lumbar region Pain in left lower leg Pneumonia Strain of gastrocnemius muscle of left lower extremity UTI (urinary tract infection) Vision abnormalities Vitamin D deficiency PAST SURGICAL HISTORY: Past Surgical History: Procedure Laterality Date APPENDECTOMY SECTION COLONOSCOPY 12/23/2017 EEG 08/29/2015 SUPRACERVICAL HYSTERECTOMY 1999 TONSILLECTOMY TUBAL LIGATION CURRENT MEDICATIONS: Current Outpatient Medications Medication Sig Dispense Refill cetirizine (ZYRTEC) 10 mg tablet Take 10 mg by mouth Daily. Fexofenadine HCl (PAPO PO) Take by mouth Daily. FLUoxetine (PROZAC) 40 MG capsule Take 40 mg by mouth Daily. fluticasone (FLONASE) 50 mcg/nasal spray 1 spray by Nasal route Daily. levETIRAcetam (KEPPRA) 500 mg tablet Take 500 mg by mouth 2 times daily. omeprazole (PRILOSEC) 10 mg capsule Take 10 mg by mouth every morning (before breakfast ). phenytoin (DILANTIN) 100 mg ER capsule Take 100 mg by mouth nightly. phenytoin (DILANTIN) 300 MG ER capsule Take 300 mg by mouth nightly. raNITIdine HCl (ZANTAC PO) Take by mouth 2 times daily. topiramate (TOPAMAX) 100 mg tablet Take 100 mg by mouth 2 times daily. verapamil (CALAN) 40 MG tablet Take 40 mg by mouth Daily. No current facility-administered medications for this visit. ALLERGIES: Allergies Allergen Reactions Bee Pollen Anaphylaxis Bupropion Other (See Comments) Seizures Metronidazole Anaphylaxis, Shortness Of Breath, Swelling and Other (See Comments) Stops breathing Propoxyphene Nausea And Vomiting and Nausea Only Propoxyphene N-Acetaminophen Nausea And Vomiting and Other (See Comments) "makes me feel weird" Venlafaxine Unknown SOCIAL HISTORY: She reports that she quit smoking about 18 months ago. Her smoking use included cigarettes . She started smoking about 41 years ago. She has a 100.00 pack-year smoking history. She herrera s never used smokeless tobacco. She reports that she drinks alcohol. She reports that she herrera s current or past drug history. Drug: Marijuana. FAMILY HISTORY: Family History Problem Relation Age of Onset Heart disease Mother Hypertension Mother Alzheimer's disease Mother Dementia Mother Depression Mother Migraines Mother Neuropathy Mother Stroke Mother x2 COPD Mother Heart attack Mother x2 Rheum arthritis Mother Diabetes Father Heart disease Father High cholesterol Father Hypertension Father Mental illness Father Depression Father Migraines Father Neuropathy Father Emphysema Father GERD Father Heart attack Father Multiple Obesity Father Rheum arthritis Father Heart disease Brother Hypertension Brother Esophageal cancer Brother Diabetes Brother Stomach cancer Brother Colon cancer Brother No known problems Maternal Grandmother No known problems Maternal Grandfather No known problems Paternal Grandmother No known problems Paternal Grandfather Alcohol abuse Brother Drug abuse Brother Depression Brother Liver disease Brother Alcohol abuse Brother Drug abuse Brother Depression Brother Osteoporosis Brother No known problems Brother Diabetes Brother Alcohol abuse Daughter Drug abuse Daughter Migraines Daughter Thyroid disease Daughter Mental illness Daughter Migraines Daughter Migraines Daughter Migraines Daughter No known problems Son No known problems Son Aneurysm Neg Hx Ataxia Neg Hx Chorea Neg Hx Essential tremors Neg Hx Familial tremors Neg Hx Mental retardation Neg Hx Multiple sclerosis Neg Hx Neurofibromatosis Neg Hx Parkinsonism Neg Hx Seizures Neg Hx Review of Systems Constitutional: Positive for chills and weight loss. HENT: Positive for hearing loss, nosebleeds and tinnitus. Eyes: Positive for blurred vision and pain. Gastrointestinal: Positive for constipation and heartburn. Genitourinary: Positive for frequency. Musculoskeletal: Positive for back pain and neck pain. Skin: Positive for itching. Neurological: Positive for dizziness, speech change, seizures and loss of consciousness. Endo/Heme/Allergies: Positive for environmental allergies. Psychiatric/Behavioral: Positive for depression, memory loss and suicidal ideas. The patien t is nervous/anxious and has insomnia. PHYSICAL EXAMINATION: Blood pressure 136/64, pulse 75, height 1.753 m (5' 9"), weight 112.2 kg (247 lb 5.7 oz), S pO2 97 %. Body mass index is 36.53 kg/m. GENERAL: Cecilia Kelley is in no acute distress with unlabored respirations. She does ap pear comfortable throughout the exam today. HEENT: Head: Normocephalic/atraumatic with no areas of recent trauma. Eyes: Normal sclerae without icterus. Ears: No drainage or tenderness. Nasopharynx: Clear without drainage. Oropharynx: Clear without erythema. Dentures HEART: Regular rate and rhythm without murmurs. NEUROLOGICAL EXAM: MENTAL STATUS: She is awake, alert, and oriented. She follows simple and complex commands. Her speech is fluent, she comprehends speech well, and she repeats well. She has no apparent deficits with short or exterminator memory. MOTOR EXAM: (5 IS NORMAL) * Indicates pain limited MUSCLE/ MOVEMENT: RIGHT LEFT Hip Flexion 5 5 Hip Extension 5 5 Knee Flexion 5 5 Knee Extension 5 5 Dorsiflexion 5 4/5 Extensor Hallicus Longus 5 4/5 Plantarflexion 5 5 REFLEXES: (2 OR 2+ IS NORMAL) REFLEX: RIGHT LEFT PATELLAR 2 2 ACHILLES 1-2 2 CLONUS ABSENT ABSENT BABINSKI NEGATIVE NEGATIVE PERIPHERAL NERVE/MISC: Positive straight leg raising on the left, for sciatic type pain TEST AND RADIOGRAPHIC REVIEW: Her imaging was reviewed in detail today during the visit. The MRI from 03/25/2019 shows f airly well-maintained disc anatomy down to L4-5 where she has a moderate sized leftward disc herniation ASSESSMENT: Symptomatic left L4-5 herniated nucleus pulposus. Seizure disorder resulting in disability . Obesity. Former smoker. NEUROSURGICAL DIAGNOSES: Encounter Diagnoses Name Primary? Lumbar herniated disc Yes Class 2 obesity due to excess calories with body mass index (BMI) of 36.0 to 36.9 in ad ult, unspecified whether serious comorbidity present GENERAL DIAGNOSES: Past Medical History: Diagnosis Date Acid reflux Allergic rhinitis Allergic state, initial encounter Anemia Angina at rest (HCC) Anxiety Arthralgia of left side of pelvis hip and femur Arthritis Arthropathy Blood transfusion without reported diagnosis Claustrophobia 5, not currently Para 6; 1 set of twins Heart murmur Heart palpitations High serum methylmalonate Insomnia Left sided sciatica Memory loss Osteoarthritis, generalized Other spondylosis with radiculopathy, lumbar region Pain in left lower leg Pneumonia Strain of gastrocnemius muscle of left lower extremity UTI (urinary tract infection) Vision abnormalities Vitamin D deficiency PLAN: Cecilia Kelley presented today, and I greatly appreciate this referral. I spent a majori ty of the visit discussing her neurologic problems. She has a symptomatic herniated nucleus pulposus on the left at L4-5 which has not responde d to 2 rounds of oral steroids. I have explained to her that I would suggest that she under go an epidural steroid injection or so-called nerve root block on the left at L4-5. The goa l would be to achieve adequate pain control and allow this to heal spontaneously. Alternati vely however if an L4 nerve root block gives brief release of pain from the local anesthetic , but then fails to give relief over the next several days from the steroids, it would bolst er the case for surgical procedure. I had a lengthy discussion with her about her options for care including surgical and non-s urgical options. In discussing surgical options, we discussed a L4-L5 MetRx assisted microdisectomy.. I also discussed that she have an Left L4 nerve root injection with Dr. Vital which sh e would like to go forward with. She understands that in most instances the recovery from surgery can be lengthy and sometim es difficult. She would like to weigh their options and contact us back. She can follow up with me or pavithra OWENS if she wishes to proceed with surgery or symptoms worse or fail to improve. I, Michael Zamora MD, personally performed the services described in this documentatio n, as scribed by RICHIE Fernandez in my presence, and it is both accurate and complete. Michael Zamora MD 05/01/19 ELECTRONICALLY SIGNED BY: Michael Zamora MD, 05/01/2019 11:11 documented in this encounter Plan of Treatment +--------+---------+ + + + | Date | Type | Specialty | Care Team | Description | +--------+---------+ + + + | 07/14/ | Office | Neurosurgery | Michael Zamora | | 2019 | Visit | | MD Lauren Virgen | | | | | | [address] | | | | | | [place] [address] | | | | | | [phone] | | | | | | | | +--------+---------+ + + + | 09/01/ | Office | Neurology | Jennifer Mcnair, | | | 2019 | Visit | | MD Al HERNANDEZ | | | | | | [address] | | | | | | [place] [address] | | | | | | [phone] | | | | | | | | +--------+---------+ + + + documented as of this encounter Visit Diagnoses + + | Diagnosis | + + | Lumbar herniated disc - Primary Displacement of lumbar intervertebral disc without | | myelopathy | + + | Class 2 obesity due to excess calories with body mass index (BMI) of 36.0 to 36.9 in | | adult, unspecified whether serious comorbidity present | + + documented in this encounter
--- OUTSIDE RECORDS SUMMARY | ~2019-07-09 | XMS | Clinical Summary ---
Demographics + + + | Address | [address] | | | [place] [address] | + + + | Home Phone | | + + + | Preferred Language | Unknown | + + + | Marital Status | | + + + | Islam Affiliation | Unknown | + + + | Race | Unknown | + + + | Ethnic Group | Unknown | + + + Author + + + | Author | [facility] (Historical as of | | | 02-07-19) | + + + | Organization | [facility] (Historical as of | | | 02-07-19) | + + + | Address | Unknown | + + + | Phone | Unavailable | + + + Care Team Providers + +------+ + | Care Booth Manager Name | Role | Phone | [...] +------+-------+ + | MEDICARE | MEDICA | [id number] | | | [address] | | | RE | | | | [place] [address] | | | IP-OP | | | [...] | | al/Gopi | | 1965 | [phone] [place] | | | susie | | | [phone] | [phone] | + +--------+ +--------+ + +"
--- OUTSIDE RECORDS SUMMARY | ~2019-07-09 | XMS | Encounter Summary ---
Demographics + + + | Address | [address] | | | [place] [address] | + + + | Home Phone | | + + + | Preferred Language | Unknown | + + + | Marital Status | | + + + | Presybeterian Affiliation | 1037 | + + + | Race | Unknown | + + + | Ethnic Group | Unknown | + + + Author + + + | Author | [facility] | | | and [place] | + + + | Organization | [facility] | | [...] [place], [place] | | | | | [address] | | + + + + + Care Team Providers + +------+ + | Care Shale Planer Operator Helper Name | Role | Phone | + [...] + + | 03/23/ | Office | [facility] | Jennifer Mcnair, | Nonspecific | | 2019 | Visit | NEUROLOGY [address] | [address] | | | | [address] | [address] | (Primary Dx); Robbi | | | | [place], [place] | [place] [address] | of trembling; | | | | [address] | [phone] | Driving safety issue | | | | [phone] | | | +--------+---------+ + + + [...] elaborates the work up don e in [place], [place]. The diagnosis was non epileptiform spells. She was later [facility] [place] [facility]. This does not focus [...] MRI brain with/without contrast on 01/20 at [facility] which states that it is a normal [...] will need to see an epileptologist at [facility] or other tertiary center in [facility] to consider inpatient monitoring. If episodes are [...] boat, scuba, work on heights, operate h [facility] machines or cook on open fire for [...] [address] | | | | | | [address] | | | | | | [place] [address] | | | | | | [phone] | | | | | | | | +--------+---------+ + + + | 09/01/ | Office | Neurology | Jennifer Mcnair, | | | 2019 | Visit | | MD Al HERNANDEZ | | | | | | [address] | | | | | | [place] [address] | | | | | | [phone] | | | | | | | [...]
--- OUTSIDE RECORDS SUMMARY | ~2019-07-09 | XMS | Encounter Summary ---
Demographics + + + | Address | [address] | | | [place] [address] | + + + | Home Phone | | + + + | Preferred Language | Unknown | + + + | Marital Status | | + + + | Mandaen Affiliation | 1037 | + + + | Race | Unknown | + + + | Ethnic Group | Unknown | + + + Author + + + | Author | [facility] | | | and Jamaalana | + + + | Organization | [facility] | | | and [...] [place], [place] | | | | | [address] | | + + + + + Care Team Providers + +------+ + | Care Lamination Inspector Name | Role | Phone | [...] + + | 02/18/ | Office | [facility] | Tabby Jennifer, | Spells of trembling | | 2019 | Visit | NEUROLOGY [address] | [address] | (Primary Dx); | | | | [address] | [address] | Driving safety issue | | | | [place], [place] | [place] [address] | | | | | [address] | [phone] | | | | | [phone] | | | +--------+---------+ + + + [...] is here with her partner, lives in [place], [place] . Has been refer red by PCP - ROMAN Rivero for evaluation of spells/seizure disorder She has an extensive neurological history since 2014. She has been evaluated at [place], [place] and [place], [place] Patient reported that she has been [...] that she had seizures during her c [facility]. She reports that stress anxiety, flashing lights or high-pitched sounds can trigger the sei zures. She states that she is mostly unconscious. Occasionally she is able to hear but not respon d during the spell. She is currently on Keppra, Dilantin, Topamax that was started in [place]. She has tried Vi mpat in the [...] has been evaluated by Dr. Nam at [facility]. She has had an MRI of the brain which was reported normal Stressors include move across the country, marrying her , unable to work. She has 6 biological kids - one child has both pseudo and epileptic seizures reportedly (reviewed Dr Jerad Cruz's note in Care everywhere tab - [place], [place] - dated 09/12/15 - ER visits [...] [facility] neurolog[facility] Roosevelt [facility] This does not focus on prior history of pseudoseizures, but rather 'seizure disorder' and p sherley to keep her on Keppra. The focus was on cognitive impairment. Apparently patient brandon nt formal neuropsychological testing on August 16, 2016 by Zara Keller, PhD, in [facility] as; overall presentation was felt to be [...] for memory loss and to maintain a town planner for upcoming aimee nts, appointments and [...] this i n the past in both [place] and [place] but she did not have nabila in the work up. She is currently on 3 AEDs RECOMMENDATIONS I have discussed with the patient that the plan to obtain records from both cancers and als o review the ones from [place] under care everywhere tab. I understand her [...] I explained to the patient that per [place] and [place] State law he/she should not to drive a vehicle or vessel of any kind, swim, bathe alone, boat, scuba, work on heights, operate [employer] or cook on open fire for six [...] [place] | | | | | | [place] [address] | | | | | | [phone] | | | | | | | | +--------+---------+ + + + | 09/01/ | Office | Neurology | Jennifer Mcnair, | | | 2019 | Visit | | MD Al HERNANDEZ | | | | | | [address] | | | | | | [place] [address] | | | | | | [phone] | | | | | | | [...]
--- OUTSIDE RECORDS SUMMARY | ~2019-07-09 | XMS | Encounter Summary ---
Demographics + + + | Address | [address] | | | [place] [address] | + + + | Home Phone | | + + + | Preferred Language | Unknown | + + + | Marital Status | | + + + | Latter-Day Affiliation | 1037 | + + + [...] [place] | | | | | [address] | | + + + + + Care Team Providers + +------+ + | Care Captain Fire Prevention Bureau Name | Role | Phone | + [...] + + | 02/18/ | Telephone | [facility] | Jaydon Maxwell, | Other (records | | 2019 | | NEUROLOGY [address] | Elizabeth, Medical | request ) | | | | [address] | Relations Liaison | | | | | [place], [place] | | | | | | [address] | | | | | | [phone] | | | +--------+ + + + [...] | | | | | [place] [address] | | | | | | [phone] | | | | | | | | +--------+---------+ + + + | 09/01/ | Office | Neurology | Jennifer Mcnair, | | | 2020 | Visit | | MD Al HERNANDEZ | | | | | | [address] | | | | | | [place] [address] | | | | | | [phone] | | | | | | | | +--------+---------+ + + + documented as of this encounter Visit Diagnoses Not on filedocumented in this encounter"
--- OUTSIDE RECORDS SUMMARY | ~2019-07-09 | XMS | Encounter Summary ---
Demographics + + + | Address | [address] | | | [place] [address] | + + + | Home Phone | | + + + | Preferred Language | Unknown | + + + | Marital Status | | + + + | Roman Catholic Affiliation | 1037 | + + + | Race | Unknown | + + + | Ethnic Group | Unknown | + + + Author + + + | Author | [facility] | | | and Jamaalana | + + + | Organization | [facility] | | [...] [place], [place] | | | | | [address] | | + + + + + Care Team Providers + +------+ + | Care Director Of Services Name | Role | Phone | + +------+ + | Nicolasa Leavitt PCP | | + +------+ + Reason for Visit Service/Procedure (Routine) +--------+--------+ + + + + | Status | Reason | Specialty | Diagnoses / | Referred By | Referred To | | | | | Procedures | Contact | Contact | +--------+--------+ + + + + | Closed | | Radiology | Diagnoses | | [facility] | | | | | Lumbar | [place], | [address] | | | | | radiculopath | Sj Spencer, MD | [place], | | | | | y | [address] | [place] | | | | | Procedures | [place] | [address] | | | | | [place] INJECT | [place], [place] | Phone: | | | | | ANES/STEROID | [address] | [phone] | | | | | FORAMEN | Phone: | Fax: | | | | | LUMBAR/SACRA | [phone] | [phone] | | | | | [address] IMG | Fax: | | | | | | GUIDE ,1 | [phone] | | | | | | LEVEL [place] | | | | | | | DEXAMETHASON | | | | | | | E SODIUM | | | | | | | PHOS, 1 MG | | | | | | | Left L4-L5 | | | | | | | TFESI-direct | | | | | | | referral | | | | | | | from | | | | | | | Noah | | | +--------+--------+ + + + + Encounter Details +--------+ + + + + | Date | Type | Department | Care Team | Description | +--------+ + + + + | 05/29/ | Hospital | [facility] | Sj Vital | Lumbar radiculopathy | | 2019 | Encounter | MED CTR XRAY [address] | T, [address] | | | | | [address] [place] | [place], [place] | | | | | [place] [address] | [address] | | | | | [phone] | | | | | | | Decorative Engraver, [facility] | | +--------+ + + + + [...] this encounter Last Filed Vital Signs + +---------+ + + | Vital Sign | Reading | Time Taken | Comments | + +---------+ + + | Blood Pressure | 140/69 | 05/29/2019 12:55 PM | | | | | PST | | + +---------+ + + | Pulse | 76 | 05/29/2019 12:55 PM | | | | | PST | | + +---------+ + + | Temperature | - | - | | + +---------+ + + | Respiratory Rate | - | - | | + +---------+ + + | Oxygen Saturation | - | - | | + +---------+ + + | Inhaled Oxygen | - | - | | | Concentration | | | | + +---------+ + + | Weight | - | - | | + +---------+ + + | Height | - | - | | + +---------+ + + | Body Mass Index | - | - | | + +---------+ + + documented in this encounter Medications at Time of Discharge + + + +---------+--------+ + | Medication | Sig | Dispensed | Refills | Start | End Date | | | | | | Date | | + + + +---------+--------+ + | cetirizine | Take 10 mg by mouth | | 0 | | | | (ZYRTEC) 10 mg | Daily. | | | | | | tablet | | | | | | + + + +---------+--------+ + | Fexofenadine HCl | Take by mouth | | 0 | | | | (PAPO PO) | Daily. | | | | | + + + +---------+--------+ + | FLUoxetine | Take 40 mg by mouth | | 0 | | | | (PROZAC) 40 MG | Daily. | | | | | | capsule | | | | | | + + + +---------+--------+ + | fluticasone | 1 spray by Nasal | | 0 | | | | (FLONASE) 50 | route Daily. | | | | | | mcg/nasal spray | | | | | | + + + +---------+--------+ + | levETIRAcetam | Take 500 mg by mouth | | 0 | | | | (KEPPRA) 500 mg | 2 times daily. | | | | | | tablet | | | | | | + + + +---------+--------+ + | omeprazole | Take 10 mg by mouth | | 0 | | | | (PRILOSEC) 10 mg | every morning | | | | | | capsule | (before breakfast). | | | | | + + + +---------+--------+ + | phenytoin | Take 100 mg by mouth | | 0 | | | | (DILANTIN) 100 mg ER | nightly. | | | | | | capsule | | | | | | + + + +---------+--------+ + | phenytoin | Take 300 mg by mouth | | 0 | | | | (DILANTIN) 300 MG ER | nightly. | | | | | | capsule | | | | | | + + + +---------+--------+ + | raNITIdine HCl | Take by mouth 2 | | 0 | | | | (ZANTAC PO) | times daily. | | | | | + + + +---------+--------+ + | topiramate | Take 100 mg by mouth | | 0 | | | | (TOPAMAX) 100 mg | 2 times daily. | | | | | | tablet | | | | | | + + + +---------+--------+ + | verapamil (CALAN) | Take 40 mg by mouth | | 0 | | | | 40 MG tablet | Daily. | | | | | + + + +---------+--------+ + documented as of this encounter Plan [...] | | | | | [place] [address] | | | | | | [phone] | | | | | | | | +--------+---------+ + + + | 09/01/ | Office | Neurology | Lyn Mcnaira, | | | 2019 | Visit | | MD Al HERNANDEZ | | | | | | [address] | | | | | | [place] [address] | | | | | | [phone] | | | | | | | | +--------+---------+ + + + documented as of this encounter Procedures + +--------+ + + + | Procedure Name | Priori | Date/Time | Associated Diagnosis | Comments | | | ty | | | | + +--------+ + + + | FL EPIDURAL STEROID | Routin | 05/29/2019 | Lumbar | Results for this | | INJECTION LUMBAR | e | 12:43 PM | radiculopathy | procedure are in the | | TRANSFORAMINAL | | PST | | results section. | + +--------+ + + + documented in this encounter Results FL LIBERTAD Lumbar Transforaminal [...] + + | Performing | Address | City/[facility] | Phone Number | | Organization | | | | + +---------+ + + | [facility] | | | | + +---------+ + + documented in this encounter Visit Diagnoses + + | Diagnosis | + + | Lumbar radiculopathy Thoracic or lumbosacral neuritis or radiculitis, unspecified | + + documented in this encounter Administered Medications + +--------+ +-------+------+------+ | Medication Order | MAR | Action | Dose | Rate | Site | | | Action | Date | | | | + +--------+ +-------+------+------+ | dexamethasone (PF) 10 mg/mL | Given | 05/29/20 | 10 mg | | | | injection 15 mg 15 mg, Other, | | 19 12:53 | | | | | ONCE, Sat05/29/19 at 1300, For 1 | | PM PST | | | | | dose, When ordered IV push: | | | | | | | Dilute to 10-20 mL with NS and | | | | | | | give slowly over 1-2 minutes., | | | | | | + +--------+ +-------+------+------+ +---+---+ | | | +---+---+ + +-------+ +-------+---+---+ | iohexol (OMNIPAQUE 300) 300 | Given | 05/29/20 | 4 mLs | | | | mg/mL injection 4 mL 4 mL, | | 19 12:51 | | | | | Other, ONCE, Sat05/29/19 at 1300, | | PM PST | | | | | For 1 dose | | | | | | + +-------+ +-------+---+---+ +---+---+ | | | +---+---+ + +-------+ +-------+---+---+ | lidocaine (PF) 1% injection 2 | Given | 05/29/20 | 2 mLs | | | | mL 2 mL, Other, ONCE, Fri | | 19 12:53 | | | | | 05/29/19 at 1300, For 1 dose, | | PM PST | | | | | EPIDURAL, | | | | | | + +-------+ +-------+---+---+ +---+---+ | | | +---+---+ + +-------+ +-------+---+ + | lidocaine buffered 0.9% | Given | 05/29/20 | 3 mLs | | Other | | injection 6 mL 6 mL, | | 19 12:48 | | | (Comment | | Intradermal, ONCE, 05/29/19 at | | PM PST | | | ) | | 1300, For 1 dose | | | | | | + +-------+ +-------+---+ + +---+---+ | | | +---+---+ documented in this encounter"
--- OUTSIDE RECORDS SUMMARY | ~2019-07-09 | XMS | Encounter Summary ---
Demographics + + + | Address | [address] | | | [place] [address] | + + + | Home Phone | | + + + | Preferred Language | Unknown | + + + | Marital Status | | + + + | Episcopalian Affiliation | 1037 | + + + | Race | Unknown | + + + | Ethnic Group | Unknown | + + + Author + + + | Author | [facility] | | | and Jamaalana | + + + | Organization | [facility] | | | and [...] [place], [place] | | | | | [address] | | + + + + + Care Team Providers + +------+ + | Care Rn Clinical Quality Name | Role | Phone | + [...] + + | 03/31/ | Telephone | [facility] | Jennifer Mcnair, | Follow-up | | 2019 | | NEUROLOGY [address] | MD [address] | | | | | [address] | [address] | | | | | [place], [place] | [place] [address] | | | | | [address] | [phone] | | | | | [phone] | | | +--------+ + + + [...] | | | | | [place] [address] | | | | | | [phone] | | | | | | | | +--------+---------+ + + + | 09/01/ | Office | Neurology | Raghunath, Jennifer, | | | 2020 | Visit | | MD Al HERNANDEZ | | | | | | [address] | | | | | | [place] [address] | | | | | | [phone] | | | | | | | | +--------+---------+ + + + documented as of this encounter Visit Diagnoses Not on filedocumented in this encounter"
--- OUTSIDE RECORDS SUMMARY | ~2019-07-09 | XMS | Encounter Summary ---
Demographics + + + | Address | [address] | | | [place] [address] | + + + | Home Phone [...] [place], [place] | | | | | [address] | | + + + + + Care Team Providers + +------+ + | Care Plant Etiologist Name | Role | Phone | + [...] | Lumbar | [place], | [address] | | | | | radiculopath | Sj Spencer, MD | [place], | | | | | y | [address] | [place] | | | | | Procedures | [place] | [address] | | | | | [place] INJECT | [place], [place] | Phone: | | | | | ANES/STEROID | [address] | [phone] | | | | | FORAMEN | Phone: | Fax: | | | | | LUMBAR/SACRA | [phone] | [phone] | | | | | [address] IMG | Fax: | | | | | | GUIDE ,1 | [phone] | | | | | | LEVEL [place] | | | | | | | [...] + + | 05/29/ | Hospital | [facility] | Sj Vital | Lumbar radiculopathy | | 2019 | Encounter | MED CTR XRAY [address] | T, [address] | | | | | [address] [place] | [place], [place] | | | | | [place] [address] | [address] | | | | | [phone] | | | | | | | Marine Animal [facility], [facility] | | +--------+ + + + [...] | | | | | [place] [address] | | | | | | [phone] | | | | | | | | +--------+---------+ + + + | 09/01/ | Office | Neurology | Lyn Mcnaira, | | | 2019 | Visit | | MD Al HERNANDEZ | | | | | | [address] | | | | | | [place] [address] | | | | | | [phone] | | | | | | | [...] + + | Performing | Address | City/State/[facility] | Phone Number | | Organization | [...]
--- OUTSIDE RECORDS SUMMARY | ~2019-07-09 | XMS | Encounter Summary ---
Demographics + + + | Address | [address] | | | [place] [address] | + + + | Home Phone | | + + + | Preferred Language | Unknown | + + + | Marital Status | | + + + | Shinto Affiliation | 1037 | + + + | Race | Unknown | + + + | Ethnic Group | Unknown | + + + Author + + + | Author | [facility] | | | and Jamaalana | + + + | Organization | [facility] | | [...] [place], [place] | | | | | [address] | | + + + + + Care Team Providers + +------+ + | Care Clinical Pharmacy Coordinator Name | Role | Phone | + [...] + + | 03/18/ | Telephone | [facility] | Jennifer Mcnair, | Other (Concerns) | | 2019 | | NEUROLOGY [address] | MD [address] | | | | | [address] | [address] | | | | | [place], [place] | [place] [address] | | | | | [address] | [phone] | | | | | [phone] | | | +--------+ + + + [...] | | | | | [place] [address] | | | | | | [phone] | | | | | | | | +--------+---------+ + + + | 03/11/ | Office | Neurology | Jennifer Mcnair, | | | 2020 | Visit | | MD Al HERNANDEZ | | | | | | [address] | | | | | | [place] [address] | | | | | | [phone] | | | | | | | | +--------+---------+ + + + documented as of this encounter Visit Diagnoses Not on filedocumented in this encounter"
--- OUTSIDE RECORDS SUMMARY | ~2019-07-09 | XMS | Encounter Summary ---
Demographics + + + | Address | [address] | | | [place] [address] | + + + | Home Phone | | + + + | Preferred Language | Unknown | + + + | Marital Status | | + + + | Mandaen Affiliation | 1037 | + + + | Race | Unknown | + + + | Ethnic Group | Unknown | + + + Author + + + | Author | [facility] | | | and Jamaalana | + + + | Organization | [facility] | | [...] [place], [place] | | | | | [address] | | + + + + + Care Team Providers + +------+ + | Care Sanitary Plumber Name | Role | Phone | + [...] + + | 03/31/ | Telephone | [facility] | Jennfier Mcnair, | Follow-up | | 2019 | | NEUROLOGY [address] | MD [address] | | | | | [address] | [address] | | | | | [place], [place] | [place] [address] | | | | | [address] | [phone] | | | | | [phone] | | | +--------+ + + + [...] | | | | | [place] [address] | | | | | | [phone] | | | | | | | | +--------+---------+ + + + | 09/01/ | Office | Neurology | Raghunath, Jennifer, | | | 2020 | Visit | | MD Al HERNANDEZ | | | | | | [address] | | | | | | [place] [address] | | | | | | [phone] | | | | | | | | +--------+---------+ + + + documented as of this encounter Visit Diagnoses Not on filedocumented in this encounter"
--- OUTSIDE RECORDS SUMMARY | ~2019-07-09 | XMS | Encounter Summary ---
Demographics + + + | Address | [address] | | | [place] [address] | + + + | Home Phone | | + + + | Preferred Language | Unknown | + + + | Marital Status | | + + + | Bahai Affiliation | 1037 | + + + [...] [place], [place] | | | | | [address] | | + + + + + Care Team Providers + +------+ + | Care Human Resource Internship Name | Role | Phone | + [...] Pina [place] | | | | | [phone] | [place] [address] | | +--------+ + + + + [...] | | | | | [place] [address] | | | | | | [phone] | | | | | | | | +--------+---------+ + + + | 09/01/ | Office | Neurology | Jennifer Mcnair, | | | 2019 | Visit | | MD Al HERNANDEZ | | | | | | [address] | | | | | | [place] [address] | | | | | | [phone] | | | | | | | [...]
--- OUTSIDE RECORDS SUMMARY | ~2019-07-09 | XMS | Encounter Summary ---
Demographics + + + | Address | [address] | | | [place] [address] | + + + | Home Phone | | + + + | Preferred Language | Unknown | + + + | Marital Status | | + + + | Jew Affiliation | 1037 | + + + | Race | Unknown | + + + | Ethnic Group | Unknown | + + + Author + + + | Author | [facility] | | | and Jamaalana | + + + | Organization | [facility] | | [...] [place] | | | | | [address] | | + + + + + Care Team Providers + +------+ + | Care Malware Analyst Name | Role | Phone | [...] | | | | [place] | [place] [address] | | | | | | [address] | Phone: | | | | | | Phone: | [phone] | | | | | | [phone] | Fax: | | | | | | Fax: | [phone] | | | | | | [phone] | | + +--------+ + + + + Encounter Details +--------+---------+ + + + | Date | Type | Department | Care Team | Description | +--------+---------+ + + + | 05/01/ | Office | [facility] | Michael Zamora | Lumbar herniated | | 2018 | Visit | [address] | MD Promise [address] | disc (Primary Dx); | | | | [address] | [address] [place] | Class 2 obesity due | | | | [place], [place] | [place] [address] | to excess calories | | | | [address] | [phone] | with body mass index | | | | [phone] | | (BMI) of 36.0 to | [...] 9:45 AM PST Suicide Prevention Services Emergency [address] [place] [address] ([facility]) crisis line [phone] National Suicide Prevention Hotline 014-689-DYBO - Don't have surgery until you have [...] different from the original. Michael Zamora MD [address] [place] [address], [address] [place], [place] [address] FAX: [phone] NEUROSURGERY HISTORY AND PHYSICAL EXAMINATION CHIEF COMPLAINT: [...] has no apparent deficits with short or long term care pharmacist memory. MOTOR EXAM: (5 IS NORMAL) * [...] [place] | | | | | | [place] [address] | | | | | | [phone] | | | | | | | | +--------+---------+ + + + | 09/01/ | Office | Neurology | Jennifer Mcnair, | | | 2019 | Visit | | MD Al HERNANDEZ | | | | | | [address] | | | | | | [place] [address] | | | | | | [phone] | | | | | | | [...]
--- OUTSIDE RECORDS SUMMARY | ~2019-07-09 | XMS | Clinical Summary ---
Demographics + + + | Address | [address] | | | [place] [address] | + + + | Home Phone [...] [place], [place] | | | | | [address] | | + + + + + Care Team Providers + +------+ + | Care Cloud Operations Engineer Name | Role | Phone | [...] | | | + + + +---------+------+------+-------+ Active Problems [...] + | Overview: Seeing [facility]. [facility] at [facility]. On | | Keppra, Dilantin, and Topiramate.02/14/18: Seizure | | Disorder:Previously followed by Dr. Nam, neurologist at [facility] | | [facility] and on levetiracetam at [...] + + | 07/01/ | Telephone | Neurosurgery | Michael Zamora | Follow-up | | 2019 | | | MD Promise | | +--------+ + + + + | 05/29/ | Hospital | Radiology | Sj Vital | Lumbar radiculopathy | | 2019 | Encounter | | MD Tj Barker Operator, | | | | | | [place]au | | +--------+ + + + + | 05/14/ | Office | Neurology | Jennifer Mcnair, | Spells of trembling | | 2018 | Visit | | | (Primary Dx); | | | | | | Seizure disorder | | | | | | ([facility]); Driving | | | | | | safety issue | +--------+ + + + + | 05/13/ | Orders Only | Physical Medicine | Sj Vital | Lumbar radiculopathy | | 2018 | | and Rehabilitation | MD Tj | (Primary Dx) | +--------+ + + + + | 05/01/ | Office | Neurosurgery | Michael Zamora | Lumbar herniated | | 2018 | Visit | | MD [facility] | [...] | Neurosurgery | Kvng, | | | 2019 | | | MD Jennifer | | +--------+ + + + + | 04/30/ | Documentati | Neurosurgery | Michael Zamora | Pain Management | | 2018 | on | | MD [facility] | (Initial Encounter) | +--------+ + + + + from [...] + + + | Blood Pressure | 140/69 | 05/29/2019 12:55 PM | | | | | PST | | + + + + + | Pulse | 76 | [...] | | | | | | [place] [address] | | | | | | [phone] | | | | | | | | +--------+---------+ + + + | 09/01/ | Office | Neurology | Jennifer Mcnair, | | | 2019 | Visit | | MD Al HERNANDEZ | | | | | | [address] | | | | | | [place] [address] | | | | | | [phone] | | | | | | | [...] + + from Last 3 Months Results [place] LIBERTAD Lumbar Transforaminal (05/29/2019 12:43 PM PST) + + | Specimen | + + | | + + + + + | Narrative | Performed At | + + + | 05/29/2019 | [facility] | | Transforaminal Epidural Steroid InjectionDiagnosis: Lumbar | | | radiculopathyICD-10 Code M54.16 Cecilia eKlley presents to the | | | fluoroscopy [...] +--------+ +---------+--------+ | MEDICARE | MEDICA | [id number] | | [phone] | | Medica | | | RE | | 018-Pr | 5 | | re | | | PART A | | esent | | | | | | AND B | | | | | | + +--------+ +--------+ +---------+--------+ | MEDICARE | MEDICA | [id number] | | [phone] | | Medica | [...] Self | [birth year] | [address] | | | al/Fam | | 1965 | [phone] | [place] | | | susie | | | 5 (Home) | [address] | + +--------+ +--------+ + + | Cecilia Kelley | Person | Self | [birth year] | [address] | | | al/Fam | | 1965 | [phone] | [place] | | | [place]ie | | | 5 (Home) | [address] | + +--------+ +--------+ + + Advance Directives + + + + + | Type | Date Recorded | Patient | Explanation | | | | Insurance Office Supervisor | | + + + + + | Power of | | | | | Roll Finisher | | | | + + + + + | Advance | | | | | Directive | | | | + + + + +
--- OUTSIDE RECORDS SUMMARY | ~2019-07-09 | XMS | Encounter Summary ---
Demographics + + + | Address | [address] | | | [place] [address] | + + + | Home Phone | | + + + | Preferred Language | Unknown | + + + | Marital Status | | + + + | Voodoo Affiliation | 1037 | + + + | Race | Unknown | + + + | Ethnic Group | Unknown | + + + Author + + + | Author | [facility] | | | and [place] | + + + | Organization | [facility] | | | [...] [place], [place] | | | | | [address] | | + + + + + Care Team Providers + +------+ + | Care Mainspring Former Name | Role | Phone | + [...] | | | | MAR[address] Wells | [place] [address] | | | | | [address] | | | | | | [phone] | | | +--------+ + + + [...] | | | | | | JAMEL F[place]I | | | | | | [place] [address] | | | | | | [phone] | | | | | | | | +--------+---------+ + + + | 09/01/ | Office | Neurology | Jennifer Mcnair, | | | 2019 | Visit | | MD Al HERNANDEZ | | | | | | [address] | | | | | | [place] [address] | | | | | | [phone] | | | | | | | | +--------+---------+ + + + documented as of this encounter Visit Diagnoses Not on filedocumented in this encounter"
--- OUTSIDE RECORDS SUMMARY | ~2019-07-09 | XMS | Encounter Summary ---
Demographics + + + | Address | [address] | | | [place] [address] | + + + | Home Phone | | + + + | Preferred Language | Unknown | + + + | Marital Status | | + + + | Hinduism Affiliation | 1037 | + + + | Race | Unknown | + + + | Ethnic Group | Unknown | + + + Author + + + | Author | [facility] | | | and [place] | + + + | Organization | [facility] | | [...] [place], [place] | | | | | [address] | | + + + + + Care Team Providers + +------+ + | Care Actuarial Internship Name | Role | Phone | [...] Pina ESPINOZA | | | | | [phone] | [place] [address] | | +--------+ + + + + [...] | | | | | | [place] [address] | | | | | | [phone] | | | | | | | | +--------+---------+ + + + | 09/01/ | Office | Neurology | Jennifer Mcnair, | | | 2019 | Visit | | MD Al HERNANDEZ | | | | | | [address] | | | | | | [place] [address] | | | | | | [phone] | | | | | | | [...]
--- OUTSIDE RECORDS SUMMARY | ~2019-07-09 | XMS | Clinical Summary ---
Demographics + + + | Address | [address] | | | [place] [address] | + + + | Home Phone | | + + + | Preferred Language | Unknown | + + + | Marital Status | | + + + | Pentecostal Affiliation | Unknown | + + + | Race | Unknown | + + + | Ethnic Group | Unknown | + + + Author + + + | Author | [facility] (Historical as of | | | 02-07-19) | + + + | Organization | [facility] (Historical as of | | | 02-07-19) | + + + | Address | Unknown | + + + | Phone | Unavailable | + + + Care Team Providers + +------+ + | Care Mathematics Improvement Teacher Name | Role | Phone | [...] +------+-------+ + | MEDICARE | MEDICA | [id number] | | | [address] | | | RE | | | | [place] [address] | | | IP-OP | | | [...] | | al/Gopi | | 1965 | [phone] | [place] | | | [place]ie | | | [phone] | [phone] | + +--------+ +--------+ + +"
--- OUTSIDE RECORDS SUMMARY | ~2019-07-09 | XMS | Encounter Summary ---
Demographics + + + | Address | [address] | | | [place] [address] | + + + | Home Phone [...] [place], [place] | | | | | [address] | | + + + + + Care Team Providers + +------+ + | Care Broadcast Designer Name | Role | Phone | + [...] Pina ESPINOZA | | | | | [phone] | [place] [address] | | +--------+ + + + + [...] | | | | | | [place] [address] | | | | | | [phone] | | | | | | | | +--------+---------+ + + + | 09/01/ | Office | Neurology | Jennifer Mcnair, | | | 2019 | Visit | | MD Al HERNANDEZ | | | | | | [address] | | | | | | [place] [address] | | | | | | [phone] | | | | | | | [...]
--- OUTSIDE RECORDS SUMMARY | ~2019-07-09 | XMS | Clinical Summary ---
Demographics + + + | Address | [address] | | | [place] [address] | + + + | Home Phone | | + + + | Preferred Language | Unknown | + + + | Marital Status | | + + + | Sikhism Affiliation | 1037 | + + + | Race | Unknown | + + + | Ethnic Group | Unknown | + + + Author + + + | Author | [facility] | | | and [place] | + + + | Organization | [facility] | | | [...] [place], [place] | | | | | [address] | | + + + + + Care Team Providers + +------+ + | Care Pressfitter Name | Role | Phone | + [...] + | Overview: Seeing Dr. Rodriguez at [facility]. On | | Keppra, Dilantin, and Topiramate.02/14/18: Seizure | | Disorder:Previously followed by Dr. Nam, neurologist at [facility] | | [facility] and on [...] 2019 | Encounter | | MD Tj Sugar Chipper Machine Operator, | | | | | | Pau | | +--------+ + + + + | 05/14/ | Office | Neurology | Jennifer Mcnair, | Spells of trembling | | 2018 | Visit | | | (Primary Dx); | | | | | | Seizure disorder | | | | | | ([facility]); Driving | | | | | | [...] | | | | | | [place] [address] | | | | | | [phone] | | | | | | | | +--------+---------+ + + + | 09/01/ | Office | Neurology | Jennifer Mcnair, | | | 2019 | Visit | | MD Al HERNANDEZ | | | | | | [address] | | | | | | [place] [address] | | | | | | [phone] | | | | | | | [...] +--------+ +---------+--------+ | MEDICARE | MEDICA | [id number] | | [phone] | | Medica | | | RE | | 018-Pr | 5 | | re | | | PART A | | esent | | | | | | AND B | | | | | | + +--------+ +--------+ +---------+--------+ | MEDICARE | MEDICA | [id number] | | [phone] | | Medica | [...] [place] | | | 5 (Home) | [address] | + +--------+ +--------+ + + | Cecilia Kelley | Person | Self | [birth year] | [address] | | | al/Fam | | 1965 | [phone] | [place] | | | [place] | | | 5 (Home) | [address] | + +--------+ +--------+ + + Advance Directives + + + + + | Type | Date Recorded | Patient | Explanation | | | | Softball Player | | + + + + + | Power of | | | | | Certified Control Systems Technician | | | | + + + + + | Advance | | | | | Directive | | | | + + + + +
--- OUTSIDE RECORDS SUMMARY | ~2019-07-09 | XMS | Encounter Summary ---
Demographics + + + | Address | [address] | | | [place] [address] | + + + | Home Phone | | + + + | Preferred Language | Unknown | + + + | Marital Status | | + + + | Protestant Affiliation | 1037 | + + + | Race | Unknown | + + + | Ethnic Group | Unknown | + + + Author + + + | Author | [facility] | | | and [place] | + + + | Organization | [facility] | | | and [...] [place], [place] | | | | | [address] | | + + + + + Care Team Providers + +------+ + | Care Workforce Management Coordinator Name | Role | Phone | [...] | (Primary Dx) | | | | [facility] [place], | [address] [place] [place] | | | | | [place] [address] | [address] | | | | | [phone] | | | +--------+ + + + [...] | 2019 | Visit | | MD Prmoise [address] | | | | | | [address] [place] | | | | | | [place] [address] | | | | | | [phone] | | | | | | | | +--------+---------+ + + + | 03/11/ | Office | Neurology | Lyn Mcnaira, | | | 2019 | Visit | | MD Al HERNANDEZ | | | | | | [address] | | | | | | [place] [address] | | | | | | [phone] | | | | | | | [...]
--- OUTSIDE RECORDS SUMMARY | ~2019-07-09 | XMS | Encounter Summary ---
Demographics + + + | Address | [address] | | | [place] [address] | + + + | Home Phone | | + + + | Preferred Language | Unknown | + + + | Marital Status | | + + + | Yazdanism Affiliation | 1037 | + + + | Race | Unknown | + + + | Ethnic Group | Unknown | + + + Author + + + | Author | [facility] | | | and [place] | + + + | Organization | [facility] | | | and [...] [place], [place] | | | | | [address] | | + + + + + Care Team Providers + +------+ + | Care Carrier Packer Name | Role | Phone | + [...] Pina ESPINOZA | | | | | [phone] | [place] [address] | | +--------+ + + + + [...] [place] | | | | | | [place] | | | | | | [place] [address] | | | | | | [phone] | | | | | | | | +--------+---------+ + + + | 09/01/ | Office | Neurology | Jennifer Mcnair, | | | 2019 | Visit | | MD Al HERNANDEZ | | | | | | [address] | | | | | | [place] [address] | | | | | | [phone] | | | | | | | [...]
[~2019-07-09 18:35] MED LIST changes: +ASPIRIN81 MG PO; +CEFUROXIME250 MG PO; +HYDROXYZINE PAM25 MG PO; +ONDANSETRON ODT8 MG PO; +RANITIDINE HCL150 M1 PO
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
== END 2019-07-09 21:06 | disposition home or self-care (01) ==
LOC: ED 18:35
DX: S00.81XA Abrasion of other part of head, initial encounter (principal); G43.909 Migraine, unspecified, not intractable, without status migrainosus; F41.8 Other specified anxiety disorders; Z87.891 Personal history of nicotine dependence; Z88.8 Allergy status to other drugs, medicaments and biological substances; Z79.899 Other long term (current) drug therapy; Z79.82 Long term (current) use of aspirin; V47.5XXA Car driver injured in collision with fixed or stationary object in traffic accident, initial encounter
CPT/HCPCS: 70450; 72125; 99283-25

== ENCOUNTER 2023-12-26 10:00 | Emergency (ER) | payer MEDICARE ==
[~2023-12-26] VITALS: Ht 175.3 cm; Wt 117.0 kg
[~2023-12-26 10:00] MED LIST changes: +HYDROCODON-ACE1 EA10 PO; +MONTELUKAST SOD10 MG PO; +PANTOPRAZOLE SO40 MG PO; +TRAZODONE HCL50 MG PO
--- OUTSIDE RECORDS SUMMARY | 2023-12-26 10:01 | XMS ---
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 [place] VISIT COUNT (12 MO.) [facility] TOTAL 3 NOTE: Visits indicate total known visits. ED/UCC VISIT TRACKING (12 MO.) 12/26/2023 10:00 KISHORE Edward TYPE: Emergency COMPLAINT: - VOMITING, HEADACHE 11/01/2023 09:31 [facility] Areli MARTIN ([place]) TYPE: Emergency DIAGNOSES: - Radiculopathy, cervical region - Chest Pain - Chest Pain / SOB 09/16/2023 16:15 KISHORE Quintana [place] TYPE: Emergency COMPLAINT: - LT KNEE INJURY DIAGNOSES: - Activity, walking an animal - Allergy status to other antibiotic agents - Anxiety disorder, unspecified - Bee allergy status - Contusion of left knee, initial encounter - Depression, unspecified - Fall on same level from slipping, tripping and stumbling without subsequent striking against object, initial encounter - 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
[2023-12-26] MEDS ORDERED: KETOROLAC TROMETHAMINE 30 MG/ML VIAL IV ONE (10:30)
[2023-12-26] MEDS ORDERED: SODIUM CHLORIDE 0.9% 1,000 ML IV ONE (10:30)
[2023-12-26] MEDS ORDERED: diphenhydrAMINE HCL 50 MG/ML VIAL IV ONE (10:30)
[2023-12-26] MEDS ORDERED: METOCLOPRAMIDE HCL 10 MG/2 ML SDV IV ONE (10:30)
[2023-12-26] MEDS ORDERED: DEXAMETHASONE SOD PHOS 10 MG/ML VIAL IV ONE (10:30)
[2023-12-26 10:56] LABS: BASOPHILS 0.7 % (0-2); EOSINOPHILS 4.6 % (0-6); HEMATOCRIT 48.3 % (35.0-50.0); HEMOGLOBIN 16.3 g/dL (12.0-18.0); LYMPHOCYTES 17.4 % (24-44); MCH 30.8 (27-36); MCHC 33.9 g/dl (30-36); MCV 90.9 fl (81-99); MONOCYTES 4.5 % (0-12); NEUTROPHILS 72.8 % (39-80); PLATELET COUNT 288 K/uL (140-440); RBC 5.31 M/ul (4.3-5.7); RDW 14.9 (10.5-15.0)
[2023-12-26 11:06] LABS: ALBUMIN 3.7 g/dL (3.4-5.0); ALBUMIN/GLOBULIN RATIO 1.09 (1.1-2.4); ANION GAP 13.5 (7-21); BILIRUBIN, TOTAL 0.4 ng/dL (0.2-1.0); BUN/CREATININE RATIO 12.22 (6.0-28.6); CALCIUM 9.4 mg/dL (8.5-10.1); CREATININE, SERUM 0.9 mg/dL (0.55-1.02); POTASSIUM 3.5 mmol/L (3.5-5.1); PROTEIN, TOTAL 7.1 g/dL (6.4-8.2)
[2023-12-26] MEDS ORDERED: REGLAN10 MG PO (11:35)
[2023-12-26 11:41] VITALS: BP 165/84
== END 2023-12-26 11:41 | disposition home or self-care (01) ==
LOC: ED 10:00
PROVIDERS: Emergency Medicine
DX: G43.909 Migraine, unspecified, not intractable, without status migrainosus (principal); Z79.899 Other long term (current) drug therapy; Z91.030 Bee allergy status; Z88.8 Allergy status to other drugs, medicaments and biological substances; Z87.891 Personal history of nicotine dependence
CPT/HCPCS: 36415; 80053; 85025; 96361; 96374; 96375; 99284; J1100; J1200; J1885; J2765; J7030

== ENCOUNTER 2025-01-25 17:12 | Emergency (ER) | payer OTHER, MEDICARE ==
[~2025-01-25] VITALS: Ht 175.3 cm; Wt 121.0 kg
[~2025-01-25 17:12] MED LIST changes: +FLONASE ALLERG9.9 ML NAS; +PRISTIQ ER50 MG PO; +REGLAN10 MG PO
[2025-01-25] MEDS ORDERED: LORazepam 2 MG/ML VIAL IV ONE (17:30)
[2025-01-25] MEDS ORDERED: EPIPEN 2-P0.3 MG/0.3 IM (18:06)
[2025-01-25 18:16] VITALS: BP 190/80
--- NOTE | 2025-01-26 14:36 | EKG ---
[facility] [address] [facility] [place] [address] Signed Normal sinus rhythm Normal ECG When compared with ECG of 10-MAR-2024 10:53, No significant change was found Confirmed by Vamshi Reed MD ([id number]) on 01/26/2025 2:36:15 PM Electronically Signed By: VAMSHI REED MD 01/26/25 1436 PATIENT NAME: TRANG DIAZ Electrocardiogram DATE OF : 63 PHYSICIAN: VAMSHI REED MD REPORT #: [id number] REPORT IS CONFIDENTIAL AND NOT TO BE RELEASED WITHOUT AUTHORIZATION
== END 2025-01-25 18:16 | disposition home or self-care (01) ==
LOC: ED 17:12
DX: T63.441A Toxic effect of venom of bees, accidental (unintentional), initial encounter (principal); Z87.891 Personal history of nicotine dependence; Z88.8 Allergy status to other drugs, medicaments and biological substances; Z91.030 Bee allergy status; Z79.899 Other long term (current) drug therapy; Z79.82 Long term (current) use of aspirin
CPT/HCPCS: 93005; 93010; 96374; 96375; 99282-25; J1200; J2060